=== PATIENT | female | born 1960 | race Caucasian/White ===

== ENCOUNTER 2024-06-17 13:34 | Outpatient (AMB) | payer MEDICARE, OTHER, SELFPAY ==
--- NOTE | 2024-06-17 13:37 | MHC.OFFVIS ---
Vital Signs 06/17/24 13:38 Height 5 ft 5 in Weight 231 lb 11.293 oz BMI 38.6 BP 148/88 H Blood Pressure Location Lt brachial Position Sitting Pulse 55 Pulse Source Pulse Oximeter Intake Visit Reasons: Hypothyroidism,obesity Intake Note: New patient present today for Hypothyroidism and obesity office visit. [employer] Required: No Accompanied by: Self / Same As Patient Allergies moxifloxacin [From Avelox] Allergy (Mild, Verified 06/17/24 13:42) rash Sulfa (Sulfonamide Antibiotics) Allergy (Mild, Verified 06/17/24 13:42) rash Medication List - Last Reconciled 06/17/24 by Di Raya MD topiramate XR 50 mg PO DAILY HPI Comments Details: 63-year-old female here today for initial evaluation of subclinical hypothyroidism and obesity. Subclinical Hypothyroidism Labs from 04/21/2024 showed TSH high of 8.9, prior to that labs from 01/21/2024 showed TSH high at 5.6 with total T4 normal at 7.2, prior to that TSH from 12/21/2023 high at 6.65 with normal total T4 of 7.9. Normal anti TPO antibodies at 15. Reports she had repeat blood work in May 2024 easy they were normal , however these results are not available to me today. Patient currently denies heat or cold intolerance, diarrhea or constipation, hair loss, palpitation, anxiety, mood changes, low energy, changes in appearance of eyes or vision changes, tremors, increased diaphoresis or dry skin. ? Patient denies any difficulty swallowing, pain on swallowing or voice changes or difficulty breathing. Patient denies any history of childhood neck radiation. Denies having ever used lithium, amiodarone or biotin supplements. Patient denies any family history of thyroid cancer . Mother hypothyroidism. Obesity BMI 38.6 Current weight 231 lb Highest weight: 231 lbs since at least 4-5 years Lowest weight: 160 lbs as an adult in 30s , was skinny growing up Weight gain started: gradually started in her 30s 33 first , 1 only, kept gaining weight after Lost 60 lbs in 40s on atkins ,and then gained it back ,in her 50s lost 40 lbs with weight watchers Post menopausal since late 50s Nutrition: seeing academic intern in [employer] With nutrition, Perla Parham . 3 meals a day mostly sometimes skips lunch 7-9AM: eggs , lal , hash browns , fruit 1-2 PM: soup dinner 7 pm: protein with veggies and some carb sodas: none, only seltzer water dessert:sometimes eats at night when less protein at dinner uses my fitness pal Exercise: 6 times a week, weight training 4 days a week , pilates 2 days, each at least 30 mins No official diagnosis of HTN , but elevated BP noted today in 140s No DM2 No HLD [place] on CPAP On topiramate for migraines for 3 months no easy bruising, no proximal muscles weakness no acromegalic features no smoking alcohol: none currently Physical exam General: sitting comfortably in no acute distress HEENT: normocephalic/atraumatic, Neck: supple, symmetrical, no thyromegaly , no dorsocervical or supraclavicular fat pads Cardiac: normal heart sounds Pulm: normal breath sounds B/L, no added breath sounds Abd: not distended, no tenderness Extremities: no edema, no signs of myxedema [facility] Medical History (Updated 06/17/24 @ 15:43 by Di Raya MD) Obesity Subclinical hypothyroidism Bunionette of left foot Surgical History (Updated 06/17/24 @ 13:43 by RENETTA Sanchez) H/O section Family History (Updated 06/17/24 @ 13:45 by RENETTA Sanchez) Mother Past heart attack COPD (chronic obstructive pulmonary disease) Kidney disease Father Prostate cancer Afib Social History Alcohol intake: former Patient Tobacco Use Status: Former Tobacco user Physical Exam Vital Signs: Last Vital Signs Pulse 55 06/17/24 13:38 BP 148/88 H 06/17/24 13:38 BMI result Body Mass Index 38.6 Assessment & Plan Assessment & Plan (1) Subclinical hypothyroidism: Code(s): E03.8 - Other specified hypothyroidism Category: Medical Plan: 63-year-old female with subclinical hyperthyroidism on labs from March 2024 where TSH was elevated at 8 with normal total T4. She says she had blood work done recently in May which showed normal labs these are not available to me today. We will repeat blood work. (2) Obesity: Code(s): E66.9 - Obesity, unspecified Category: Medical Qualifiers: Obesity type: due to excess calories Obesity classification: adult class 2 (BMI 35 - 39.9) Serious obesity comorbidity presence: with serious comorbidity Body mass index: BMI 38.0-38.9 Qualified Code(s): E66.812 - Obesity, class 2; E66.01 - Morbid (severe) obesity due to excess calories; Z68.38 - Body mass index [BMI] 38.0-38.9, adult Plan: 63-year-old female with coming in today for weight management with class 2 obesity with BMI 38.6 Current weight 231 lb Highest weight: 231 lbs since at least 4-5 years Lowest weight: 160 lbs as an adult in 30s , was skinny growing up Weight gain started: gradually started in her 30s She has previously tried different diets including Atkins diet and weight watchers in her 40s and 50s that did result in good results. Currently she has been trying to maintain a calorie deficit, she is seeing a academic intern however is not seeing results. She is also doing regular exercise 6 days a week including both cardio and strength training. I reviewed with patient the importance of weight loss as it relates to decreasing the risk of diabetes, cardiovascular disease, obstructive sleep apnea,PCOS, arthritis. She does not have any cushingoid or acromegalic features . We discussed continuing lifestyle modification in ensuring a 500 calorie deficit per day in order to lose 1 lb per week. She does not have any history of diabetes, CVA, hyperlipidemia. However I will check A1c and lipid panel. She already has sleep apnea and does use a CPAP. She will benefit from a GLP 1 agonist especially with regards to her diagnosis of [place] and obesity. She does not have any history of pancreatitis, she is not drinking any alcohol currently, no family history of thyroid cancer. Plan: -start Zepbound 2.5 mg weekly with plan for up titration of the medication. -continue seeing the academic intern -continue good exercise activity as she is doing -follow up in 5 weeks Plan I spent 60 minutes in reviewing the record, seeing the patient and documenting in the medical record. Orders: Orders Thyroid Stimulating Hormone Today E03.8 - Other specified hypothyroidism Lipid Panel Today E66.9 - Obesity, unspecified Free T4 (Free Thyroxine) Today E03.8 - Other specified hypothyroidism Thyroid Peroxidase Antibodies Today E03.8 - Other specified hypothyroidism Hemoglobin A1c Today E66.9 - Obesity, unspecified Medications: New tirzepatide (weight loss) (Zepbound) for 4 weeks 2.5 mg (0.5 mL) subcut QWEEK 2 mL 1RF Patient Instructions: Weight loss counselling ? Limit added sugars to less than 25 grams daily. There are 4.2 grams of sugar per teaspoon of sugar. A teaspoon of honey has 6 grams of sugar! Bread also can have more sugar than you think-check labels ? No soda or juices. Drink water, unsweetened iced tea or seltzer ? Limit eating out/take out or prepared meals to twice weekly at most ? Avoid red meat, hot dogs, lal and deli meat. Substitute plant protein for animal protein as much as you can. Beans, nuts, tofu, soy milk ? Limit cheese to 1 ounce a few times weekly ? Eat high fiber foods like beans, apples and green veggies, salsa is a great snack with whole grain cracker like Wasa ? Look for the whole grain stamp when choosing bread etc. Aim for 48 grams of whole grains daily. Whole wheat does not equal whole grains! ? Don't keep tempting treats in the house. Go out once in a while for a treat. ? Don't eat anything deep fried or cream based-no sour cream Coding Level of Care Code New Pt Level 5 (04066) Diagnoses Subclinical hypothyroidism E03.8 Class 2 severe obesity due to excess calories with serious comorbidity and body mass index (BMI) of 38.0 to 38.9 in adult E66.812; E66.01; Z68.38 Obesity type: due to excess calories Obesity classification: adult class 2 (BMI 35 - 39.9) Serious obesity comorbidity presence: with serious comorbidity Body mass index: BMI 38.0-38.9 Time Spent (min) 60
[2024-06-17 13:38] VITALS: BP 148/88; PULSE 55; BMI 38.6
== END 2024-06-17 14:39 | disposition home or self-care (01) ==
PROVIDERS: Visit Provider Student in an Organized Health Care Education/Training Program
DX: E03.8 Other specified hypothyroidism (principal); E66.812 Obesity, class 2; Z68.38 Body mass index [BMI] 38.0-38.9, adult
CPT/HCPCS: 99205

== ENCOUNTER → 2024-06-17 13:34 | Outpatient (BNVA) | payer MEDICARE, OTHER, SELFPAY | PROVIDERS: Visit Provider Student in an Organized Health Care Education/Training Program | DX: E03.8 Other specified hypothyroidism (principal); E66.01 Morbid (severe) obesity due to excess calories; Z68.38 Body mass index [BMI] 38.0-38.9, adult | CPT/HCPCS: 99202 ==

== ENCOUNTER 2024-06-20 07:51 | Outpatient (REF) | payer MEDICARE, OTHER, SELFPAY ==
[2024-06-20 12:38] LABS: Cholesterol 192 mg/dL (<200); Free T4 (Free Thyroxine) 0.96 ng/dL (0.71-1.85); HDL Cholesterol 46 mg/dL (>40); LDL Cholesterol Calculated 126 mg/dL (<100); Thyroid Stimulating Hormone 3.49 uIU/mL (0.32-4.0); Triglycerides 101 mg/dL (<150)
[2024-06-20 13:08] LABS: Estimated Average Glucose 111 mg/dL; Hemoglobin A1C 129.8508 umol/L; Hemoglobin A1c % 5.5 % (<6.0); Total Hemoglobin (HGBA1C) 3536.2261 umol/L
[2024-06-23 18:58] LABS: Thyroid Peroxidase Antibodies <1 IU/mL (<9)
== END 2024-06-20 07:52 | disposition home or self-care (01) ==
LOC: HO.WFDLDS 07:51
PROVIDERS: Visit Provider Student in an Organized Health Care Education/Training Program
DX: E03.8 Other specified hypothyroidism (principal); E66.9 Obesity, unspecified; Z13.1 Encounter for screening for diabetes mellitus
CPT/HCPCS: 36415; 80061; 83036; 84439; 84443; 86376

== ENCOUNTER 2024-07-29 13:22 | Outpatient (AMB) | payer MEDICARE, OTHER, SELFPAY ==
[2024-07-29 13:24] VITALS: BP 138/78; PULSE 62; O2SAT 94; BMI 37.9
--- NOTE | 2024-07-29 13:24 | A.OFFVIS_ITS ---
Vital Signs 3 07/29/24 13:24 Height 5 ft 5 in Weight 227 lb 15.327 oz BMI 37.9 BP 138/78 Blood Pressure Location Lt brachial Position Sitting Pulse 62 Pulse Source Pulse Oximeter Pulse Oximetry (%) 94 Oxygen Delivery Method Room Air Intake Visit Reasons: Hypothyroidism/obesity Intake Note: Patient present today for hypothyroidism follow up visit. [employer] Office Required: No Accompanied by: Self / Same As Patient Allergies moxifloxacin [From Avelox] Allergy (Mild, Verified 07/29/24 13:28) rash Sulfa (Sulfonamide Antibiotics) Allergy (Mild, Verified 07/29/24 13:28) rash Medication List - Last Reconciled 07/29/24 by Di Raya MD tirzepatide (weight loss) (Zepbound) 2.5 mg (0.5 mL) subcut QWEEK topiramate XR 50 mg PO DAILY HPI Comments Details: 63-year-old female here today for follow up of subclinical hypothyroidism and obesity. Obesity BMI 38.6 Current weight 231 lb Highest weight: 231 lbs since at least 4-5 years Lowest weight: 160 lbs as an adult in 30s , was skinny growing up Weight gain started: gradually started in her 30s 33 first , 1 only, kept gaining weight after Lost 60 lbs in 40s on atkins ,and then gained it back ,in her 50s lost 40 lbs with weight watchers Post menopausal since late 50s Nutrition: seeing furniture sprayer in [employer] nutrition, Perla Parham . 3 meals a day mostly sometimes skips lunch 7-9AM: eggs , lal , hash browns , fruit 1-2 PM: soup dinner 7 pm: protein with veggies and some carb sodas: none, only seltzer water dessert:sometimes eats at night when less protein at dinner uses my fitness pal Exercise: 6 times a week, weight training 4 days a week , pilates 2 days, each at least 30 mins No official diagnosis of HTN , but elevated BP noted today in 140s No DM2 No HLD [place] on CPAP On topiramate for migraines for 3 months no easy bruising, no proximal muscles weakness no acromegalic features no smoking alcohol: none currently Interval history Zepbound 2.5 mg weekly approved 07/29/24 BMI 37.9 kg/m2, current weight 227 lbs lost 4 lbs since May 2024 according to our scale in addition to above adding more core exercise , working with a maintenance trainer Continues to use my fitness pal for maintaining a calorie deficit and aiming for 1500 calories per day Subclinical Hypothyroidism : Resolved Labs from 04/21/2024 showed TSH high of 8.9, prior to that labs from 01/21/2024 showed TSH high at 5.6 with total T4 normal at 7.2, prior to that TSH from 12/21/2023 high at 6.65 with normal total T4 of 7.9. Normal anti TPO antibodies at 15. Reports she had repeat blood work in May 2024 easy they were normal , however these results are not available to me today. Patient currently denies heat or cold intolerance, diarrhea or constipation, hair loss, palpitation, anxiety, mood changes, low energy, changes in appearance of eyes or vision changes, tremors, increased diaphoresis or dry skin. ? Patient denies any difficulty swallowing, pain on swallowing or voice changes or difficulty breathing. Patient denies any history of childhood neck radiation. Denies having ever used lithium, amiodarone or biotin supplements. Patient denies any family history of thyroid cancer . Mother hypothyroidism. Interval history 06/20/2024: Normal thyroid function, undetectable TPO antibodies Physical exam General: sitting comfortably in no acute distress HEENT: normocephalic/atraumatic, Neck: supple, symmetrical, no thyromegaly , no dorsocervical or supraclavicular fat pads Cardiac: normal heart sounds Pulm: normal breath sounds B/L, no added breath sounds Abd: not distended, no tenderness Extremities: no edema, no signs of myxedema Laboratory Tests 06/20/24 07:55 Estimat Average Glucose 111 Hemoglobin A1c % 5.5 Triglycerides 101 Cholesterol 192 LDL Cholesterol, Calc 126 H HDL Cholesterol 46 TSH 3.49 Free T4 0.96 Thyroid Peroxidase Ab <1 [facility] Medical History (Updated 06/17/24 @ 15:43 by Di Raya MD) Obesity Subclinical hypothyroidism Bunionette of left foot Surgical History H/O section Family History Mother Past heart attack COPD (chronic obstructive pulmonary disease) Kidney disease Father Prostate cancer Afib Social History Alcohol intake: former Patient Tobacco Use Status: Former Tobacco user Physical Exam Vital Signs: Last Vital Signs Pulse 62 07/29/24 13:24 BP 138/78 07/29/24 13:24 Pulse Ox 94 07/29/24 13:24 Oxygen Delivery Method Room Air 07/29/24 13:24 BMI result Body Mass Index 37.9 Assessment & Plan Assessment & Plan (1) Subclinical hypothyroidism: Code(s): E03.8 - Other specified hypothyroidism Category: Medical Plan: Resolved: 63-year-old female with subclinical hyperthyroidism on labs from March 2024 where TSH was elevated at 8 with normal total T4. Interval history 06/20/2024: Normal thyroid function, undetectable TPO antibodies. at this point, she does not need follow up for this. Primary care physician can repeat labs with TSH with reflex free T4 once a year. (2) Obesity: Code(s): E66.9 - Obesity, unspecified Category: Medical Qualifiers: Obesity type: due to excess calories Obesity classification: adult class 2 (BMI 35 - 39.9) Serious obesity comorbidity presence: with serious comorbidity Body mass index: BMI 38.0-38.9 Qualified Code(s): E66.812 - Obesity, class 2; E66.01 - Morbid (severe) obesity due to excess calories; Z68.38 - Body mass index [BMI] 38.0-38.9, adult Plan: 63-year-old female with coming in today for follow up for weight management with class 2 obesity with BMI 37.9 kg per m2 down from 38.6 in May 2024 Current weight 227 lb, lost 4 lb since May 1024. Patient thinks she lost 10 lb which is different on her hence scale. Highest weight: 231 lbs since at least 4-5 years Lowest weight: 160 lbs as an adult in 30s , was skinny growing up Weight gain started: gradually started in her 30s She has previously tried different diets including Atkins diet and weight watchers in her 40s and 50s that did result in good results. Currently she has been trying to maintain a calorie deficit, she is seeing a furniture sprayer however is not seeing results. She is also doing regular exercise 6 days a week including both cardio and strength training. She has also added core exercises to this and works with a maintenance trainer. I reviewed with patient the importance of weight loss as it relates to decreasing the risk of diabetes, cardiovascular disease, obstructive sleep apnea,PCOS, arthritis. She does not have any cushingoid or acromegalic features . We discussed continuing lifestyle modification in ensuring a 500 calorie deficit per day in order to lose 1 lb per week. She does not have any history of diabetes, CVA, , labs from May 2024 showed normal A1c. LDL was however elevated at 126. We also discussed today about avoiding red meat, using olive oil or avocado oil for cocaine. And avoiding trans saturated in polyunsaturated fats. She already has sleep apnea and does use a CPAP. Given obesity with BMI greater than 35 kg per m2, with a history of [place], hyperlipidemia she is an excellent candidate for GLP 1 agonist. We already prescribed her the about 2.5 mg weekly at her last appointment, however it took about 2 months where her prior authorization to take place. It has finally been approved by [facility] and she is pending to cook pickled meat the prescription. She does not have any history of pancreatitis, she is not drinking any alcohol currently, no family history of thyroid cancer. Plan: -start Zepbound 2.5 mg weekly with plan for up titration of the medication. -continue seeing the furniture sprayer -continue good exercise activity as she is doing -follow up in 12 weeks Plan see above Coding Level of Care Code Est Pt Level 3 (94730) Diagnoses Subclinical hypothyroidism E03.8 Class 2 severe obesity due to excess calories with serious comorbidity and body mass index (BMI) of 38.0 to 38.9 in adult E66.812; E66.01; Z68.38 Obesity type: due to excess calories Obesity classification: adult class 2 (BMI 35 - 39.9) Serious obesity comorbidity presence: with serious comorbidity Body mass index: BMI 38.0-38.9
== END 2024-07-29 13:49 | disposition home or self-care (01) ==
PROVIDERS: Visit Provider Student in an Organized Health Care Education/Training Program
DX: E03.8 Other specified hypothyroidism (principal); E66.812 Obesity, class 2; E66.01 Morbid (severe) obesity due to excess calories; Z68.38 Body mass index [BMI] 38.0-38.9, adult
CPT/HCPCS: 99213

== ENCOUNTER → 2024-07-29 13:22 | Outpatient (BNVA) | payer MEDICARE, OTHER, SELFPAY | PROVIDERS: Visit Provider Student in an Organized Health Care Education/Training Program | DX: E03.8 Other specified hypothyroidism (principal); E66.812 Obesity, class 2; Z68.37 Body mass index [BMI] 37.0-37.9, adult | CPT/HCPCS: 99212 ==

== ENCOUNTER 2024-09-23 14:44 | Outpatient (AMB) | payer MEDICARE, OTHER, SELFPAY ==
--- NOTE | 2024-09-23 14:48 | A.OFFPC_ITS ---
Vital Signs 09/23/24 14:59 Height 5 ft 5 in Weight 210 lb 4 oz BMI 35.0 BP 118/68 Blood Pressure Location Rt brachial Position Sitting Respiration 16 Pulse 66 Pulse Source Pulse Oximeter Temp 97.9 F Temp Source Oral Pulse Oximetry (%) 99 Oxygen Delivery Method Room Air Intake Visit Reasons: est care Intake Note: New patient visit Confidential Investigator Required: No Allergies moxifloxacin [From Avelox] Allergy (Mild, Verified 09/23/24 14:53) rash Sulfa (Sulfonamide Antibiotics) Allergy (Mild, Verified 09/23/24 14:53) rash Tobacco use date assessed: 09/23/24 Fall risk assessment: 1 Fall in past year (Fell two weeks ago. ) Last assessed Fall Risk: 09/23/24 Dental Screening Dental Screen Date: 09/23/24 Did you have a dental visit in the last 12 months?: Yes Did you have a dental problem in the last 6 months where you did not have access to dental care?: No Was dental information given to patient?: Patient has dentist HPI HPI Comments History of Present Illness Details 63-year-old female with a past medical h istory of hyperlipidemia, obesity, subclinical hypothyroid, bipolar disorder, [place] on cpap, [facility] Transfer[facility] from Dr Hinds in [facility] On topamax for JENSEN prophylaxis. Has had MRI brain that was normal [place]-on CPAP. Obesity: Has lost 20 + pounds on zepbound. Has seen endocrinology Colonoscopy: 01/06/2020 Mammo: UTD. Family history of breast cancer. 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 [facility] Laboratory Tests 06/20/24 07:55 Estimat Average Gl ucose 111 Hemoglobin A1c % 5.5 Triglycerides 101 Cholesterol 192 LDL Cholesterol, C alc 126 H HDL Cholesterol 46 TSH 3.49 Free T4 0.96 Thyroid Peroxidase Ab <1 PFSH Medical History Obesity Subclinical hypothyroidism Bunionette of left foot Surgical History History of bunionectomy H/O colonoscopy H/O section Family History Mother Past heart attack COPD (chronic obstructive pulmonary disease) Kidney disease Father Prostate cancer Afib Social History Housing: House Alcohol intake: former Patient Tobacco Use Status: Former Tobacco user (quit 30 years ago) Cigarette Packs Per Day: 1 Years Smoked: 20 e-Cigarette/Vaping Use: Never Used Second Hand Smoke Exposure: Yes (past) Substance Use Type: Crack/Cocaine, Former Substance User and Marijuana service: No Current occupational status: employed and retired Cognitive needs: No Hearing needs: No Vision needs: Yes (glasses) Questionnaire PHQ-9 Over the last 2 weeks, how often have you been bothered by any of the following problems? 1. Little interest or pleasure in doing things: not at all 2. Feeling down, depressed, or hopeless: not at all 3. Trouble falling or staying asleep, or sleeping too much: not at all 4. Feeling tired or having little energy: not at all 5. Poor appetite or overeating: not at all 6. Feeling bad about yourself - or that you are a failure or have let yourself or your family down: not at all 7. Trouble concentrating on things, such as reading the newspaper or watching television: not at all 8. Moving or speaking so slowly that other people could have noticed. Or the opposite - being so fidgety or restless that you have been moving around a lot more than usual: not at all 9. Thoughts that you would be better off or of hurting yourself in some way: not at all Total score: 0 Depression Screening Interpretation: Negative Depression Screening Done: Yes 40196 - PHQ-9 Billing: Yes Source: Developed by Drs. Johan Chahal, Angelina Wayne, Gordon Griffin and colleagues, with an educational dany from [employer]. Thrive Questionnaire Date Thrive assessed: 09/23/24 I am a: Patient What is your living situation today?: I have a steady place to live Within the past 12 months, did the food you bought not last and you didn't have the money to get more?: Never true Within the past 12 months, did you worry whether your food would run out before you got money to buy more?: Never true Do you have trouble paying for medicines?: No Do you have trouble getting transportation to medical appointments?: No Do you have trouble paying your heating and electricity bill?: No Do you have trouble taking care of your child, family member or friend?: No Do you have trouble with day-to-day activities such as bathing, preparing meals, shopping, managing finances, etc.?: No Are you currently unemployed and looking for a job?: No Are you interested in more education?: No Please select the resources that you would like help with: None Currently or been in a relationship where the following occur: I choose not to answer THRIVE Score: 0 AUDIT C Alcohol Use Questionnaire (AUDIT-C) 1. How often do you have a drink containing alcohol?: Monthly or less 2. How many drinks containing alcohol do you have on a typical day when you are drinking?: 1 or 2 3. How often do you have six or more drinks on one occasion?: Never Total Score: 1 DREW-7 AMB Questionnaire DREW-7 Date DREW - 7 assessed: 09/23/24 Feeling nervous, anxious, or on edge: 1 = Several days Not being able to stop or control worryin = Not at all Worrying too much about different things: 0 = Not at all Trouble relaxin = Several days Being so restless that it is hard to sit still: 1 = Several days Becoming easily annoyed or irritable: 1 = Several days Feeling afraid as if something awful might happen: 0 = Not at all Total DREW-7 score (0-4 normal; 5-9 mild; 10-14 moderate; 15-21 severe): 4 Source: Developed by Drs. Johan Chahal, Angelina Wayne, Gordon Griffin and colleagues, with an educational dany from [employer]. DREW-7 Assessment Billing DREW-7 Assessment Tool: DREW-7 Assessment 16993 Physical exam (Primary Care) Vital Signs: Last Vital Signs Temp 97.9 F 09/23/24 14:59 Pulse 66 09/23/24 14:59 Resp 16 09/23/24 14:59 BP 118/68 09/23/24 14:59 Pulse Ox 99 09/23/24 14:59 Oxygen Delivery Method Room Air 09/23/24 14:59 BMI result Body Mass Index 35.0 Tobacco/Smoking Status: Tobacco use Status Tobacco use date assessed 09/23/24 09/23/24 14:57 Patient Tobacco Use Status Former Tobacco user (quit 30 09/23/24 14:57 years ago) e-Cigarette/Vaping Use Never Used 09/23/24 14:57 PHQ-9: PHQ-9 Score PHQ-9: Total score 0 09/24/24 09:56 Depression Screening Interpretation: Negative Thrive Assessment: Date of Thrive Assessment Date Thrive assessed 09/23/24 09/23/24 15:04 Currently or been in a relationship where the following occur: I choose not to answer Coding Level of Care Code New Pt Level 4 (40716) Diagnoses Encounter to establish care Z76.89 [place] (obstructive sleep apnea) G47.33 Class 2 severe obesity due to excess calories with serious comorbidity and body mass index (BMI) of 38.0 to 38.9 in adult E66.812; E66.01; Z68.38 Body mass index: BMI 38.0-38.9 Obesity classification: adult class 2 (BMI 35 - 39.9) Obesity type: due to excess calories Serious obesity comorbidity presence: with serious comorbidity Subclinical hypothyroidism E03.8 Additional Codes DREW-7 Assessment Billing - DREW-7 Assessment Tool: DREW-7 Assessment 13935 ([id number]) PHQ-9 - 16309 - PHQ-9 Billing: Yes ([id number]) Assessment & Plan Assessment & Plan (1) Encounter to establish care: Code(s): Z76.89 - Persons encountering health services in other specified circumstances Category: Medical (2) [place] (obstructive sleep apnea): Code(s): G47.33 - Obstructive sleep apnea (adult) (pediatric) Category: Medical (3) Obesity: Code(s): E66.9 - Obesity, unspecified Category: Medical Qualifiers: Body mass index: BMI 38.0-38.9 Obesity classification: adult class 2 (BMI 35 - 39.9) Obesity type: due to excess calories Serious obesity comorbidity presence: with serious comorbidity Qualified Code(s): E66.812 - Obesity, class 2; E66.01 - Morbid (severe) obesity due to excess calories; Z68.38 - Body mass index [BMI] 38.0-38.9, adult (4) Subclinical hypothyroidism: Code(s): E03.8 - Other specified hypothyroidism Category: Medical Plan 63 y/o to establish care Past medical, surgical, social and family history reviewed referral to sleep medicine placed Orders: Referrals Sleep Medicine Referral G47.33 - Obstructive sleep apnea (adult) (pediatric)
[2024-09-23 14:59] VITALS: BP 118/68; PULSE 66; RESP 16; TEMP 36.6; O2SAT 99; BMI 35.0
== END 2024-09-23 15:31 | disposition home or self-care (01) ==
LOC: HO.HMCFM 14:45
PROVIDERS: Visit Provider Internal Medicine
DX: G47.33 Obstructive sleep apnea (adult) (pediatric) (principal); Z76.89 Persons encountering health services in other specified circumstances; E66.01 Morbid (severe) obesity due to excess calories; Z68.35 Body mass index [BMI] 35.0-35.9, adult; Z68.38 Body mass index [BMI] 38.0-38.9, adult; E66.812 Obesity, class 2; E03.8 Other specified hypothyroidism

== ENCOUNTER → 2024-09-23 14:44 | Outpatient (BNVA) | payer MEDICARE, OTHER, SELFPAY | PROVIDERS: Visit Provider Internal Medicine | DX: Z76.89 Persons encountering health services in other specified circumstances (principal); G47.33 Obstructive sleep apnea (adult) (pediatric); E66.812 Obesity, class 2; E66.01 Morbid (severe) obesity due to excess calories; Z68.38 Body mass index [BMI] 38.0-38.9, adult; E03.8 Other specified hypothyroidism | CPT/HCPCS: 96127; 99202 ==

== ENCOUNTER 2024-10-28 13:54 | Outpatient (AMB) | payer MEDICARE, OTHER, SELFPAY ==
[2024-10-28 13:56] VITALS: BP 126/78; PULSE 61; O2SAT 98; BMI 34.4
--- NOTE | 2024-10-28 13:56 | MHC.OFFVIS ---
Intake Visit Reasons: Obesity Allergies moxifloxacin [From Avelox] Allergy (Mild, Verified 09/23/24 14:53) rash Sulfa (Sulfonamide Antibiotics) Allergy (Mild, Verified 09/23/24 14:53) rash HPI Comments Details: 63-year-old female here today for follow up of subclinical hypothyroidism and obesity. Obesity BMI 38.6 Current weight 231 lb Highest weight: 231 lbs since at least 4-5 years Lowest weight: 160 lbs as an adult in 30s , was skinny growing up Weight gain started: gradually started in her 30s 33 first , 1 only, kept gaining weight after Lost 60 lbs in 40s on atkins ,and then gained it back ,in her 50s lost 40 lbs with weight watchers Post menopausal since late 50s Nutrition: seeing equipment service associate in [employer] nutrition, Perla Parham . 3 meals a day mostly sometimes skips lunch 7-9AM: eggs , lal , hash browns , fruit 1-2 PM: soup dinner 7 pm: protein with veggies and some carb sodas: none, only seltzer water dessert:sometimes eats at night when less protein at dinner uses my fitness pal Exercise: 6 times a week, weight training 4 days a week , pilates 2 days, each at least 30 mins No official diagnosis of HTN , but elevated BP noted today in 140s No DM2 No HLD [place] on CPAP On topiramate for migraines for 3 months no easy bruising, no proximal muscles weakness no acromegalic features no smoking alcohol: none currently Interval history Zepbound 2.5 mg weekly approved 07/29/24 BMI 37.9 kg/m2, current weight 227 lbs lost 4 lbs since May 2024 according to our scale in addition to above adding more core exercise , working with a personal carer Continues to use my fitness pal for maintaining a calorie deficit and aiming for 1500 calories per day Subclinical Hypothyroidism : Resolved Labs from 04/21/2024 showed TSH high of 8.9, prior to that labs from 01/21/2024 showed TSH high at 5.6 with total T4 normal at 7.2, prior to that TSH from 12/21/2023 high at 6.65 with normal total T4 of 7.9. Normal anti TPO antibodies at 15. Reports she had repeat blood work in May 2024 easy they were normal , however these results are not available to me today. Patient currently denies heat or cold intolerance, diarrhea or constipation, hair loss, palpitation, anxiety, mood changes, low energy, changes in appearance of eyes or vision changes, tremors, increased diaphoresis or dry skin. ? Patient denies any difficulty swallowing, pain on swallowing or voice changes or difficulty breathing. Patient denies any history of childhood neck radiation. Denies having ever used lithium, amiodarone or biotin supplements. Patient denies any family history of thyroid cancer . Mother hypothyroidism. Interval history 06/20/2024: Normal thyroid function, undetectable TPO antibodies Physical exam General: sitting comfortably in no acute distress HEENT: normocephalic/atraumatic, Neck: supple, symmetrical, no thyromegaly , no dorsocervical or supraclavicular fat pads Cardiac: normal heart sounds Pulm: normal breath sounds B/L, no added breath sounds Abd: not distended, no tenderness Extremities: no edema, no signs of myxedema Laboratory Tests 06/20/24 07:55 Estimat Average Glucose 111 Hemoglobin A1c % 5.5 Triglycerides 101 Cholesterol 192 LDL Cholesterol, Calc 126 H HDL Cholesterol 46 TSH 3.49 Free T4 0.96 Thyroid Peroxidase Ab <1 PFSH Medical History Obesity Subclinical hypothyroidism Bunionette of left foot Surgical History History of bunionectomy H/O colonoscopy H/O section Family History Mother Past heart attack COPD (chronic obstructive pulmonary disease) Kidney disease Father Prostate cancer Afib Social History Housing: House Alcohol intake: former Patient Tobacco Use Status: Former Tobacco user (quit 30 years ago) Cigarette Packs Per Day: 1 Years Smoked: 20 e-Cigarette/Vaping Use: Never Used Second Hand Smoke Exposure: Yes (past) Substance Use Type: Crack/Cocaine, Former Substance User and Marijuana service: No Current occupational status: employed and retired Cognitive needs: No Hearing needs: No Vision needs: Yes (glasses) Coding
--- NOTE | 2024-10-28 13:56 | MHC.OFFVIS ---
Vital Signs 10/28/24 13:56 Height 5 ft 5 in Weight 207 lb 0.225 oz BMI 34.4 BP 126/78 Blood Pressure Location Lt brachial Position Sitting Pulse 61 Pulse Source Pulse Oximeter Pulse Oximetry (%) 98 Oxygen Delivery Method Room Air Intake Visit Reasons: Obesity Intake Note: Patient present today for Obesity office visit. Tobacco Roller Required: No Accompanied by: Self / Same As Patient Allergies moxifloxacin [From Avelox] Allergy (Mild, Verified 10/28/24 13:59) rash Sulfa (Sulfonamide Antibiotics) Allergy (Mild, Verified 10/28/24 13:59) rash Medication List - Last Reconciled 10/28/24 by Di Raya MD [id number] (Evenity) subcut tirzepatide (weight loss) (Zepbound) 5 mg (0.5 mL) subcut QWEEK topiramate XR 50 mg PO DAILY HPI Comments Details: 63-year-old female here today for follow up of obesity. Obesity BMI 38.6 Current weight 231 lb Highest weight: 231 lbs since at least 4-5 years Lowest weight: 160 lbs as an adult in 30s , was skinny growing up Weight gain started: gradually started in her 30s 33 first , 1 only, kept gaining weight after Lost 60 lbs in 40s on atkins ,and then gained it back ,in her 50s lost 40 lbs with weight watchers Post menopausal since late 50s Nutrition: seeing conditioning coach in [employer] nutrition, Perla Parham . 3 meals a day mostly sometimes skips lunch 7-9AM: eggs , lal , hash browns , fruit 1-2 PM: soup dinner 7 pm: protein with veggies and some carb sodas: none, only seltzer water dessert:sometimes eats at night when less protein at dinner uses my fitness pal Exercise: 6 times a week, weight training 4 days a week , pilates 2 days, each at least 30 mins No official diagnosis of HTN , but elevated BP noted today in 140s No DM2 No HLD [place] on CPAP On topiramate for migraines for 3 months no easy bruising, no proximal muscles weakness no acromegalic features no smoking alcohol: none currently Interval history 07/29/2024 Zepbound 2.5 mg weekly approved 07/29/24 BMI 37.9 kg/m2, current weight 227 lbs lost 4 lbs since May 2024 according to our scale in addition to above adding more core exercise , working with a personal injury paralegal Continues to use my fitness pal for maintaining a calorie deficit and aiming for 1500 calories per day Interval history 10/28/2024 Started Zepbound 2.5 mg July 2024 Increased to 5 mg weekly end of July Patient tolerating the medication valve Exercise: 6 times a week, weight training 3 times a week, Pilates 2 days, each at least 30 minutes, also working with a personal injury paralegal Diet: Following a diet plan with calorie deficit with the using my fitness pal Says she has started Zepbound with lifestyle modification she has lost 13% of her body weight, weight down from 231 lb in May 2024 to 207 lb today 10/28/2024 Denies GI intolerance, some diarrhea intermittently Denies low mood , depression, has a therpsist Continues follow up with the conditioning coach, has follow up this month in October 2024 Physical exam General: sitting comfortably in no acute distress HEENT: normocephalic/atraumatic, Neck: supple, symmetrical Cardiac: normal heart sounds Pulm: normal breath sounds B/L, no added breath sounds Abd: not distended, no tenderness Extremities: no edema, no signs of myxedema Laboratory Tests 06/20/24 07:55 Estimat Average Glucose 111 Hemoglobin A1c % 5.5 Triglycerides 101 Cholesterol 192 LDL Cholesterol, Calc 126 H HDL Cholesterol 46 TSH 3.49 Free T4 0.96 Thyroid Peroxidase Ab <1 PFSH Medical History Obesity Subclinical hypothyroidism Bunionette of left foot Surgical History History of bunionectomy H/O colonoscopy H/O section Family History Mother Past heart attack COPD (chronic obstructive pulmonary disease) Kidney disease Father Prostate cancer Afib Social History Housing: House Alcohol intake: former Patient Tobacco Use Status: Former Tobacco user (quit 30 years ago) Cigarette Packs Per Day: 1 Years Smoked: 20 e-Cigarette/Vaping Use: Never Used Second Hand Smoke Exposure: Yes (past) Substance Use Type: Crack/Cocaine, Former Substance User and Marijuana service: No Current occupational status: employed and retired Cognitive needs: No Hearing needs: No Vision needs: Yes (glasses) Assessment & Plan Assessment & Plan (1) Obesity: Code(s): E66.9 - Obesity, unspecified Category: Medical Qualifiers: Obesity type: due to excess calories Obesity classification: adult class 2 (BMI 35 - 39.9) Serious obesity comorbidity presence: with serious comorbidity Body mass index: BMI 38.0-38.9 Qualified Code(s): E66.812 - Obesity, class 2; E66.01 - Morbid (severe) obesity due to excess calories; Z68.38 - Body mass index [BMI] 38.0-38.9, adult Plan: 63-year-old female with coming in today for follow up for weight management with class 2 obesity with BMI 38.6 in May 2024 Current weight 207 lb, lost 30 lb since May 2024 which is about 13% of her weight since she made the lifestyle modifications and started Zepbound. Currently on Zepbound 5 mg weekly which was uptitrated end of July 2024. Highest weight: 231 lbs since at least 4-5 years Lowest weight: 160 lbs as an adult in 30s , was skinny growing up Weight gain started: gradually started in her 30s She has previously tried different diets including Atkins diet and weight watchers in her 40s and 50s that did result in good results. Currently she has been trying to maintain a calorie deficit, she is following. She is following a diet plan with the help of a conditioning coach and also using my fitness pal. She has also added core exercises to this and works with a personal injury paralegal. Maintaining an active exercise regimen. She does not have any cushingoid or acromegalic features . We discussed continuing lifestyle modification in ensuring a 500 calorie deficit per day in order to continue to lose 1 lb per week. Her target weight should be somewhere around 130 lb though for her she would like to lose somewhere around 180 lb She does not have any history of diabetes, CVA, , labs from May 2024 showed normal A1c. LDL was however elevated at 126. We also discussed today about avoiding red meat, using olive oil or avocado oil for cooking. And avoiding trans saturated in polyunsaturated fats. She already has sleep apnea and does use a CPAP. At this point we will continue the current dose of Zepbound given we are seeing excellent results. If her weight starts to plateau, we will consider increasing the dose. Plan: -continue Zepbound 5 mg weekly injection -continue seeing the conditioning coach -continue good exercise activity as she is doing -follow up in 12 weeks Plan see above Patient Instructions: Reach out to us sometime in January to ensure that her prior authorization is renewed on time. Continue Zepbound 5 mg weekly Coding Level of Care Code Est Pt Level 3 (98242) Diagnoses Class 2 severe obesity due to excess calories with serious comorbidity and body mass index (BMI) of 38.0 to 38.9 in adult E66.812; E66.01; Z68.38 Obesity type: due to excess calories Obesity classification: adult class 2 (BMI 35 - 39.9) Serious obesity comorbidity presence: with serious comorbidity Body mass index: BMI 38.0-38.9
== END 2024-10-28 14:27 | disposition home or self-care (01) ==
LOC: HO.ENCR 13:55
PROVIDERS: Visit Provider Student in an Organized Health Care Education/Training Program
DX: E66.812 Obesity, class 2 (principal); E66.01 Morbid (severe) obesity due to excess calories; Z68.38 Body mass index [BMI] 38.0-38.9, adult
CPT/HCPCS: 99213

== ENCOUNTER → 2024-10-28 13:54 | Outpatient (BNVA) | payer MEDICARE, OTHER, SELFPAY | PROVIDERS: Visit Provider Student in an Organized Health Care Education/Training Program | DX: E66.812 Obesity, class 2 (principal); E66.01 Morbid (severe) obesity due to excess calories; Z68.34 Body mass index [BMI] 34.0-34.9, adult | CPT/HCPCS: 99212 ==

== ENCOUNTER 2024-11-24 10:39 | Outpatient (AMB) | payer MEDICARE, OTHER, SELFPAY ==
[2024-11-24 10:51] VITALS: BP 124/80; PULSE 56; O2SAT 99; BMI 34.0
--- NOTE | 2024-11-24 10:51 | MHC.OFFVIS ---
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 [place] on CPAP. [facility]. Patient has to. Compliance in chart.(88/90 days, >=4hrs 97%, average usage- 6hrs 39min, med pressure-10.4, med leaks-4.2, AHI-0.8) Here to establish new care as old Dr. potts. Accompanied by: Self / Same As Patient Allergies moxifloxacin (From Avelox) Allergy (Mild, Verified 11/24/24 10:55) rash Sulfa (Sulfonamide Antibiotics) Allergy (Mild, Verified 11/24/24 10:55) rash HPI Comments Details: 64 year old female with [place] referred to us by her pcp. FH + Afib dad and sister ZAMZAM. 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 She sleeps very well with her machine and hopes to lose weight and outgrow her cpap some day. She is on zepbound 5mg subcut. 1x and has lost 27lbs, she reduced her caloric intake, she exercises daily with the gym full plate . she sees her senior manufacturing test engineer and mold worker every 4 months Apr 2023 she started on cpap therapy, uses her nose pillows, washes her masks, hoses, changes filters, and fills reservoir with water. She sleeps very well with her cpap machine and is compliant. She grinds her teeth, has a retainer at night. She had some issues with her thyroid, now improved and followed by Di Raya her Custom Wood Stair Builder. 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 Headaches are managed well on topamax 50mg daily, if she gets one breakthrough tension headache she soaks her feet and that alleviates the pain. She denies RLS, has a h/o varicose veins, she wears her compression stockings every other day. She denies current smoking, is a former 20 year smoker, she will have cocktails socially, denies MJ, edibles. She has osteoporosis on Evenity subcut monthly. Women's health Associate [facility] Dr. Rosanne jimenez requested. [facility] Medical History Obesity Subclinical hypothyroidism Bunionette of left foot Surgical History History of bunionectomy H/O colonoscopy H/O section Family History (Updated 11/24/24 @ 11:57 by Julio Zuniga PA-C) Mother Past heart attack COPD (chronic obstructive pulmonary disease) Kidney disease Afib Father Prostate cancer Afib Sister Afib Social History Housing: House Alcohol intake: former Patient Tobacco Use Status: Former Tobacco user (quit 30 years ago) Cigarette Packs Per Day: 1 Years Smoked: 20 e-Cigarette/Vaping Use: Never Used Second Hand Smoke Exposure: Yes (past) Substance Use Type: Crack/Cocaine, Former Substance User and Marijuana service: No Current occupational status: employed and retired Cognitive needs: No Hearing needs: No Vision needs: Yes (glasses) Physical Exam Vital Signs: Last Vital Signs Pulse 56 11/24/24 10:51 BP 124/80 11/24/24 10:51 Pulse Ox 99 11/24/24 10:51 Oxygen Delivery Method Room Air 11/24/24 10:51 BMI result Body Mass Index 34.0 Const General: cooperative, comfortable and no acute distress Nutritional Appearance: average body habitus Orientation/consciousness: patient oriented x3 HEENT Face and sinus: Yes face symmetric Teeth and gingiva: other (Mallampti score of 4) Eyes Pupils: Equal, round and reactive pupils present Neck Neck: Yes full ROM Resp Effort & Inspection: normal respiratory effort and able to speak in complete sentences Neuro General: patient oriented x3 and moves all extremities Cranial nerves: Yes Facial sensation intact/muscles of mastication intact, Yes Equal, round and reactive pupils present, Yes Normal accommodation reflex present, Yes Nystagmus not present, Yes Normal facial strength present, Yes Midline tongue present and Yes Ability to bilaterally elevate shoulders present Cognition (Neuro): normal cognition Gait exam (Neuro): Normal gait present Motor exam (neuro): 5/5 motor strength present throughout and Normal motor muscle tone present throughout Deep tendon reflexes (DTR's): Right triceps reflex intensity grade: 2+, Left triceps reflex intensity grade: 2+, Rt Biceps (C5, C6): 2+, Left biceps reflex intensity grade: 2+, Right brachioradialis reflex intensity grade: 2+, Left brachioradialis reflex intensity grade: 2+, Right patellar reflex intensity grade: 2+, Left patellar reflex intensity grade: 2+, Right ankle reflex intensity grade: 2+ and Left ankle reflex intensity grade: 2+ Coordination: [id number] test normal Psych Appearance: grossly normal Speech and movement: Normal speech and movement present Affect: normal affect Thought process: Normal thought process present Results Reviewed Results Reviewed: [place] Compliance Report 07/2024 - 10/2024 Avg days used 88/90 and >4 hours is 97% Total avg use daily is 6 hours and 39min Pressures 10.0 to [id number] and AHI is 0.8/ hr Assessment & Plan Assessment & Plan (1) [place] (obstructive sleep apnea): Code(s): G47.33 - Obstructive sleep apnea (adult) (pediatric) Category: Medical (2) Fatigue due to sleep pattern disturbance: Code(s): R53.83 - Other fatigue; G47.9 - Sleep disorder, unspecified Category: Medical (3) Encounter to establish care: Comment: Her retired at [facility] [employer] Code(s): Z76.89 - Persons encountering health services in other specified circumstances Category: Medical (4) Obesity: Comment: On Zepbound 5mg po subcut wkly Code(s): E66.9 - Obesity, unspecified Category: Medical Qualifiers: Obesity type: due to excess calories Obesity classification: adult class 2 (BMI 35 - 39.9) Serious obesity comorbidity presence: with serious comorbidity Body mass index: BMI 38.0-38.9 Qualified Code(s): E66.812 - Obesity, class 2; E66.01 - Morbid (severe) obesity due to excess calories; Z68.38 - Body mass index [BMI] 38.0-38.9, adult Plan HST c/w [place] Labs to r/o deficiencies Obesity continue zepbound 5mg subcut weekly, continue working with phsyical quality review trainer and staying active, reducing calories. Orders: Orders Methylmalonic Acid Today G47.9 - Sleep disorder, unspecified, R53.83 - Other fatigue Calcium Today G47.9 - Sleep disorder, unspecified, R53.83 - Other fatigue Vitamin D 25-OH Total Today G47.9 - Sleep disorder, unspecified, R53.83 - Other fatigue Vitamin B12 and Folate Today G47.9 - Sleep disorder, unspecified, R53.83 - Other fatigue Homocysteine Today G47.9 - Sleep disorder, unspecified, R53.83 - Other fatigue Ferritin Today G47.9 - Sleep disorder, unspecified, R53.83 - Other fatigue Patient Instructions: Sleep Hygiene provided: set a scheduled bedtime and wake time to help regulate the circadian rhythm and balance the release of pituitary hormones. Sleep in a dark room, temperatures below 68 degrees, and no devices n bed. Limit caffeinated products 6 hours prior to bed, and limit fluids 2-4 hours prior to bed. Gentle night yoga, diffusing essential oils, and playing soft music can be relaxing. Coding Level of Care Code New Pt Level 4 (68436) Diagnoses [place] (obstructive sleep apnea) G47.33 Fatigue due to sleep pattern disturbance R53.83; G47.9 Encounter to establish care Z76.89 Class 2 severe obesity due to excess calories with serious comorbidity and body mass index (BMI) of 38.0 to 38.9 in adult E66.812; E66.01; Z68.38 Obesity type: due to excess calories Obesity classification: adult class 2 (BMI 35 - 39.9) Serious obesity comorbidity presence: with serious comorbidity Body mass index: BMI 38.0-38.9 Time Spent (min) 30 Comment Improving sleep Sleep Questionnaire Difficulty falling asleep: No Difficulty staying asleep?: No Number of arousals: 2-3 Snoring: Yes Witnessed apneas: No Gasping arousals: No Nocturia: No GERD: No Vivid dreams: Yes Acting out dreams: No Abnormal behavior in sleep: No Abnormal movements in sleep: No Morning headaches: No Excessive daytime sleepiness: No Daytime naps: Yes Restless legs: No Hallucinations: No Sleep paralysis: No Drop attacks: No Sleep Study: Yes CPAP: Yes
== END 2024-11-24 11:50 | disposition home or self-care (01) ==
LOC: HO.HSMS 10:40
PROVIDERS: Visit Provider Physician Assistant Medical
DX: G47.33 Obstructive sleep apnea (adult) (pediatric) (principal); R53.83 Other fatigue; G47.9 Sleep disorder, unspecified; Z76.89 Persons encountering health services in other specified circumstances; E66.812 Obesity, class 2; E66.01 Morbid (severe) obesity due to excess calories; Z68.38 Body mass index [BMI] 38.0-38.9, adult
CPT/HCPCS: 99204

== ENCOUNTER → 2024-11-24 10:39 | Outpatient (BNVA) | payer MEDICARE, OTHER, SELFPAY | PROVIDERS: Visit Provider Physician Assistant Medical | DX: G47.33 Obstructive sleep apnea (adult) (pediatric) (principal); Z76.89 Persons encountering health services in other specified circumstances; R53.83 Other fatigue; G47.9 Sleep disorder, unspecified; E66.812 Obesity, class 2; E66.01 Morbid (severe) obesity due to excess calories; Z68.34 Body mass index [BMI] 34.0-34.9, adult | CPT/HCPCS: 99202 ==

== ENCOUNTER 2024-12-01 10:44 | Outpatient (REF) | payer MEDICARE, OTHER, SELFPAY ==
[2024-12-01 15:14] LABS: Calcium 8.8 mg/dL (8.4-10.2)
[2024-12-01 15:40] LABS: Folate 15.3 ng/mL (> or = 4.0); Vitamin B12 873 pg/mL (200-900)
[2024-12-01 15:59] LABS: Ferritin 80 ng/mL (10-250)
== END 2024-12-01 10:45 | disposition home or self-care (01) ==
LOC: HO.WFDLDS 10:44
PROVIDERS: Visit Provider Physician Assistant Medical
DX: R53.83 Other fatigue (principal); G47.9 Sleep disorder, unspecified
CPT/HCPCS: 36415; 82306; 82310; 82607; 82728; 82746; 83090; 83921

== ENCOUNTER 2025-01-29 14:52 | Outpatient (AMB) | payer MEDICARE, OTHER, SELFPAY ==
--- NOTE | 2025-01-29 14:55 | A.OFFVIS_ITS ---
Vital Signs 3 01/29/25 14:56 Height 5 ft 5 in Weight 199 lb 8.293 oz BMI 33.2 BP 124/80 Blood Pressure Location Lt brachial Position Sitting Pulse 65 Pulse Source Pulse Oximeter Pulse Oximetry (%) 99 Oxygen Delivery Method Room Air Intake Visit Reasons: Obesity Intake Note: Patient present today for obesity office visit. Family Readiness Support Assistant Required: No Accompanied by: Self / Same As Patient Allergies moxifloxacin (From Avelox) Allergy (Mild, Verified 01/29/25 14:59) rash Sulfa (Sulfonamide Antibiotics) Allergy (Mild, Verified 01/29/25 14:59) rash Medication List - Last Reconciled 01/29/25 by Di Raya MD [id number] (Evenity) subcut tirzepatide (weight loss) (Zepbound) 5 mg (0.5 mL) subcut QWEEK topiramate XR 50 mg PO DAILY HPI Comments Details: 63-year-old female here today for follow up of obesity. Obesity BMI 38.6 Current weight 231 lb Highest weight: 231 lbs since at least 4-5 years Lowest weight: 160 lbs as an adult in 30s , was skinny growing up Weight gain started: gradually started in her 30s 33 first , 1 only, kept gaining weight after Lost 60 lbs in 40s on atkins ,and then gained it back ,in her 50s lost 40 lbs with weight watchers Post menopausal since late 50s Nutrition: seeing fermentation operator in [employer], Perla Parham . 3 meals a day mostly sometimes skips lunch 7-9AM: eggs , lal , hash browns , fruit 1-2 PM: soup dinner 7 pm: protein with veggies and some carb sodas: none, only seltzer water dessert:sometimes eats at night when less protein at dinner uses my fitness pal Exercise: 6 times a week, weight training 4 days a week , pilates 2 days, each at least 30 mins No official diagnosis of HTN , but elevated BP noted today in 140s No DM2 No HLD [place] on CPAP On topiramate for migraines for 3 months no easy bruising, no proximal muscles weakness no acromegalic features no smoking alcohol: none currently Interval history 07/29/2024 Zepbound 2.5 mg weekly approved 07/29/24 BMI 37.9 kg/m2, current weight 227 lbs lost 4 lbs since May 2024 according to our scale in addition to above adding more core exercise , working with a boxing trainer Continues to use my fitness pal for maintaining a calorie deficit and aiming for 1500 calories per day Interval history 10/28/2024 Started Zepbound 2.5 mg July 2024 Increased to 5 mg weekly end of July Patient tolerating the medication valve Exercise: 6 times a week, weight training 3 times a week, Pilates 2 days, each at least 30 minutes, also working with a boxing trainer Diet: Following a diet plan with calorie deficit with the using my fitness pal Says she has started Zepbound with lifestyle modification she has lost 13% of her body weight, weight down from 231 lb in May 2024 to 207 lb today 10/28/2024 Denies GI intolerance, some diarrhea intermittently Denies low mood , depression, has a therpsist Continues follow up with the fermentation operator, has follow up this month in October 2024 Interval history 01/29/2025 Continues on Zepbound 5 mg Weight down 199 lbs from 207 lbs October 2024 Patient tolerating the medication Exercise: 6 times a week, weight training 2 times a week 1.5 hrs a week with personal training , yoga once a week , supplementing with swimming and walking Diet: Following a diet plan with calorie deficit with the using my fitness pal, focusing on a high protein low carb diet Denies GI intolerance, some diarrhea intermittently Denies low mood , depression, has a therpsist Continues follow up with the fermentation operator, has appointment 01/30/2025 Physical exam General: sitting comfortably in no acute distress HEENT: normocephalic/atraumatic, Neck: supple, symmetrical Cardiac: normal heart sounds Pulm: normal breath sounds B/L, no added breath sounds Abd: not distended, no tenderness Extremities: no edema, no signs of myxedema Laboratory Tests 06/20/24 07:55 Estimat Average Glucose 111 Hemoglobin A1c % 5.5 Triglycerides 101 Cholesterol 192 LDL Cholesterol, Calc 126 H HDL Cholesterol 46 TSH 3.49 Free T4 0.96 Thyroid Peroxidase Ab <1 PFSH Medical History Obesity Subclinical hypothyroidism Bunionette of left foot Surgical History History of bunionectomy H/O colonoscopy H/O section Family History (Updated 11/24/24 @ 11:57 by Julio Zuniga PA-C) Mother Past heart attack COPD (chronic obstructive pulmonary disease) Kidney disease Afib Father Prostate cancer Afib Sister Afib Social History Housing: House Alcohol intake: former Patient Tobacco Use Status: Former Tobacco user (quit 30 years ago) Cigarette Packs Per Day: 1 Years Smoked: 20 e-Cigarette/Vaping Use: Never Used Second Hand Smoke Exposure: Yes (past) Substance Use Type: Crack/Cocaine, Former Substance User and Marijuana service: No Current occupational status: employed and retired Cognitive needs: No Hearing needs: No Vision needs: Yes (glasses) Assessment & Plan Assessment & Plan (1) Obesity: Comment: On Zepbound 5mg po subcut wkly Code(s): E66.9 - Obesity, unspecified Category: Medical Qualifiers: Obesity type: due to excess calories Obesity classification: adult class 2 (BMI 35 - 39.9) Serious obesity comorbidity presence: with serious comorbidity Body mass index: BMI 38.0-38.9 Qualified Code(s): E66.812 - Obesity, class 2; E66.01 - Morbid (severe) obesity due to excess calories; Z68.38 - Body mass index [BMI] 38.0-38.9, adult Plan: 64-year-old female with coming in today for follow up for weight management with class 2 obesity with BMI 38.6 in May 2024 Current weight 199 lb down from 207 lb, since October 2024, lost 30 lb since May 2024 which is about 13% of her weight since she made the lifestyle modifications and started Zepbound. Currently on Zepbound 5 mg weekly which was uptitrated end of July 2024. Highest weight: 231 lbs since at least 4-5 years Lowest weight: 160 lbs as an adult in 30s , was skinny growing up Weight gain started: gradually started in her 30s She has previously tried different diets including Atkins diet and weight watchers in her 40s and 50s that did result in good results. Currently she has been trying to maintain a calorie deficit, she is following. She is following a diet plan with the help of a fermentation operator and also using my fitness pal. She has also added core exercises to this and works with a boxing trainer. Maintaining an active exercise regimen. She does not have any cushingoid or acromegalic features . We discussed continuing lifestyle modification in ensuring a 500 calorie deficit per day in order to continue to lose 1 lb per week. Her target weight should be somewhere around 130 lb though for her she would like to lose somewhere around 180 lb She does not have any history of diabetes, CVA, , labs from May 2024 showed normal A1c. LDL was however elevated at 126. We also discussed today about avoiding red meat, using olive oil or avocado oil for cooking. And avoiding trans saturated in polyunsaturated fats. She already has sleep apnea and does use a CPAP. At this point since weight loss has slowed down in somewhat plateaued, we will increase the dose. Plan: -increase Zepbound to 7.5 mg weekly injection -continue seeing the fermentation operator -continue good exercise activity as she is doing -follow up in 10 to 12 weeks Plan see above Medications: New 2 tirzepatide (weight loss) (Zepbound) 7.5 mg (0.5 mL) subcut QWEEK 2 mL 4RF E66.01 - Morbid (severe) obesity due to excess calories, E66.812 - Obesity, class 2, G47.33 - Obstructive sleep apnea (adult) (pediatric), Z68.38 - Body mass index [BMI] 38.0-38.9, adult Discontinued 2 tirzepatide (weight loss) (Zepbound) Discontinued Reason: Doctor's Order 5 mg (0.5 mL) subcut QWEEK 2 mL 5RF Coding Level of Care Code Est Pt Level 4 (60290) Diagnoses Class 2 severe obesity due to excess calories with serious comorbidity and body mass index (BMI) of 38.0 to 38.9 in adult E66.812; E66.01; Z68.38 Obesity type: due to excess calories Obesity classification: adult class 2 (BMI 35 - 39.9) Serious obesity comorbidity presence: with serious comorbidity Body mass index: BMI 38.0-38.9 Time Spent (min) 30
[2025-01-29 14:56] VITALS: BP 124/80; PULSE 65; O2SAT 99; BMI 33.2
== END 2025-01-29 15:14 | disposition home or self-care (01) ==
LOC: HO.ENCR 14:53
PROVIDERS: Visit Provider Student in an Organized Health Care Education/Training Program
DX: E66.812 Obesity, class 2 (principal); E66.01 Morbid (severe) obesity due to excess calories; Z68.38 Body mass index [BMI] 38.0-38.9, adult
CPT/HCPCS: 99214

== ENCOUNTER → 2025-01-29 14:52 | Outpatient (BNVA) | payer MEDICARE, OTHER, SELFPAY | PROVIDERS: Visit Provider Student in an Organized Health Care Education/Training Program | DX: E66.812 Obesity, class 2 (principal); Z68.38 Body mass index [BMI] 38.0-38.9, adult; Z79.899 Other long term (current) drug therapy | CPT/HCPCS: 99212 ==

== ENCOUNTER 2025-02-23 11:29 | Outpatient (AMB) | payer MEDICARE, OTHER, SELFPAY ==
[2025-02-23 11:32] VITALS: BP 122/72; PULSE 79; O2SAT 97; BMI 32.3
--- NOTE | 2025-02-23 11:32 | MHC.OFFVIS ---
Vital Signs 02/23/25 11:32 Height 5 ft 5 in Weight 194 lb 4 oz BMI 32.3 BP 122/72 Blood Pressure Location Rt brachial Position Sitting Pulse 79 Pulse Source Pulse Oximeter Pulse Oximetry (%) 97 Oxygen Delivery Method Room Air Intake Visit Reasons: 3 mo follow up Intake Note: Patient presents follow up [place]. Labs/Compliance in chart(90/90days, >=4hrs-98%, Average Usage- 6hr 30min, Med Pressure-10.4, Med Leaks-5.7, AHI-0.7). ? in-lab PSG Accompanied by: Self / Same As Patient Allergies moxifloxacin (From Avelox) Allergy (Mild, Verified 02/23/25 11:40) rash Sulfa (Sulfonamide Antibiotics) Allergy (Mild, Verified 02/23/25 11:40) rash HPI Comments Details: 64 year old female with sleep apnea is here for a f/u of sleep difficulties. [place] Compliance Report 10/2024 - 01/2025 Avg days used 90/90 and >6 hours and 30 min Total avg use daily is 6 hours and 30min Pressures 10.4 Med leaks 5.7, AHI 0.7/hr She washes her masks, rinses hoses, changes filters, and fills reservoir with water. 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 She sleeps very well with her cpap machine and is compliant. She started on Zepbound 7.5mg subq, she has lost 4 lbs since her last endocrine visit. She sees her flanging roll operator and sheet metal insulator every 4 months, for Thyroid disorder and normalized since she discontinued biotin. She grinds her teeth, has an invisalign retainer which she uses at night. She has headaches, usually 2/week, depending on stress level. If she gets one breakthrough tension headache she soaks her feet in warm water, this alleviates the pain along with taking Topiramate 25mg po at noon and 25mg po qpm. She denies RLS, has a h/o varicose veins, she wears her compression stockings every other day. She denies falls, gait or balance difficulties, though has weakness and goes for strength training and stability T/Th with a PT at her gym. [facility] Medical History Obesity Subclinical hypothyroidism Bunionette of left foot Surgical History History of bunionectomy H/O colonoscopy H/O section Family History Mother Past heart attack COPD (chronic obstructive pulmonary disease) Kidney disease Afib Father Prostate cancer Afib Sister Afib Social History Housing: House Alcohol intake: former Patient Tobacco Use Status: Former Tobacco user (quit 30 years ago) Cigarette Packs Per Day: 1 Years Smoked: 20 e-Cigarette/Vaping Use: Never Used Second Hand Smoke Exposure: Yes (past) Substance Use Type: Crack/Cocaine, Former Substance User and Marijuana service: No Current occupational status: employed and retired Cognitive needs: No Hearing needs: No Vision needs: Yes (glasses) Physical Exam Vital Signs: Last Vital Signs Pulse 79 02/23/25 11:32 BP 122/72 02/23/25 11:32 Pulse Ox 97 02/23/25 11:32 Oxygen Delivery Method Room Air 02/23/25 11:32 BMI result Body Mass Index 32.3 Const General: cooperative, comfortable and no acute distress Nutritional Appearance: average body habitus Orientation/consciousness: patient oriented x3 HEENT Face and sinus: Yes face symmetric Teeth and gingiva: other (Mallampti score of 4) Eyes Pupils: Equal, round and reactive pupils present Neck Neck: Yes full ROM Resp Effort & Inspection: normal respiratory effort and able to speak in complete sentences Neuro General: patient oriented x3 and moves all extremities Cranial nerves: Yes Facial sensation intact/muscles of mastication intact, Yes Equal, round and reactive pupils present, Yes Normal accommodation reflex present, Yes Nystagmus not present, Yes Normal facial strength present, Yes Midline tongue present and Yes Ability to bilaterally elevate shoulders present Cognition (Neuro): normal cognition Gait exam (Neuro): Normal gait present Motor exam (neuro): 5/5 motor strength present throughout and Normal motor muscle tone present throughout Psych Appearance: grossly normal Speech and movement: Normal speech and movement present Affect: normal affect Thought process: Normal thought process present Insight: Good insight present (Psych) Results Reviewed Results Reviewed: [place] Compliance Report 10/2024 - 01/2025 Avg days used 90/90 and >6 hours and 30 min Total avg use daily is 6 hours and 30min Pressures 10.4 Med leaks 5.7, AHI 0.7/hr She washes her masks, rinses hoses, changes filters, and fills reservoir with water. [facility] Note L. ankle due to fall, due to eversion with no fracture or dislocation on xray. No loc, not on anticoag.Is able to bear weight. Assessment & Plan Assessment & Plan (1) [place] (obstructive sleep apnea): Code(s): G47.33 - Obstructive sleep apnea (adult) (pediatric) Category: Medical (2) Fatigue due to sleep pattern disturbance: Code(s): R53.83 - Other fatigue; G47.9 - Sleep disorder, unspecified Category: Medical (3) Abnormality of gait due to impairment of balance: Code(s): R26.89 - Other abnormalities of gait and mobility Category: Medical Plan HST to evaluate [place] Supplies will send a request to her cpap company. Balance and gait instablity due to fall, continue PT at gym, wear good fitted shoes with orthotics and or good memory foam soles. Labs continue supplements B12/ Vit D. F/U in 3 months Orders: Orders RT home sleep study Today G47.19 - Other hypersomnia Patient Instructions: Sleep Hygiene provided: set a scheduled bedtime and wake time to help regulate the circadian rhythm and balance the release of pituitary hormones. Sleep in a dark room, temperatures below 68 degrees, and no devices n bed. Limit caffeinated products 6 hours prior to bed, and limit fluids 2-4 hours prior to bed. Gentle night yoga, diffusing essential oils, and playing soft music can be relaxing. Coding Level of Care Code Est Pt Level 4 (86408) Diagnoses [place] (obstructive sleep apnea) G47.33 Fatigue due to sleep pattern disturbance R53.83; G47.9 Abnormality of gait due to impairment of balance R26.89
== END 2025-02-23 12:14 | disposition home or self-care (01) ==
LOC: HO.HSMS 11:30
PROVIDERS: Visit Provider Physician Assistant Medical
DX: G47.33 Obstructive sleep apnea (adult) (pediatric) (principal); R53.83 Other fatigue; G47.9 Sleep disorder, unspecified; R26.89 Other abnormalities of gait and mobility
CPT/HCPCS: 99214

== ENCOUNTER → 2025-02-23 11:29 | Outpatient (BNVA) | payer MEDICARE, OTHER, SELFPAY | PROVIDERS: Visit Provider Physician Assistant Medical | DX: G47.33 Obstructive sleep apnea (adult) (pediatric) (principal); R53.83 Other fatigue; R26.89 Other abnormalities of gait and mobility; G47.19 Other hypersomnia; Z99.89 Dependence on other enabling machines and devices | CPT/HCPCS: 99212 ==

== ENCOUNTER 2025-03-20 11:52 | Outpatient (AMB) | payer MEDICARE, OTHER, SELFPAY ==
[2025-03-20 11:54] VITALS: BP 146/80; PULSE 80; TEMP 36.5; O2SAT 99; BMI 32.4
--- NOTE | 2025-03-20 11:54 | MHC.OFFWIV ---
Intake Vital Signs 03/20/25 11:54 Height 5 ft 5 in Weight 195 lb BMI 32.4 BP 146/80 H Blood Pressure Location Lt brachial Position Sitting Pulse 80 Pulse Source Pulse Oximeter Temp 97.7 F Temp Source Oral Pulse Oximetry (%) 99 Oxygen Delivery Method Room Air Intake Visit Reasons: EP-?side effect from a med, rt foot pain Intake Note: pt presents with worsening right middle toe pain and swelling [id number] Patient Tobacco Use Status: Former Tobacco user (quit 30 years ago) Allergies moxifloxacin (From Avelox) Allergy (Mild, Verified 03/20/25 12:01) rash Sulfa (Sulfonamide Antibiotics) Allergy (Mild, Verified 03/20/25 12:01) rash Do you need a note to return to daycare/school/sports/work: No HPI HPI Comments History of Present Illness Details This is a 64-year-old female with a past medical history of bunionectomy on her right foot x 2, most recent surgery in 2017 presenting for evaluation of pain in her right foot that she has had for the past 3 months. Patient denies any injury or trauma preceding the onset of her symptoms. She describes having a sharp stabbing sensation on the bottom of her right foot and the top of her right third toe. Patient states the pain is worse with activity. She has an appointment with her high school director at the end of March 2025. She has not taken any medication for treatment of this discomfort. Patient states that she has pain primarily when ambulating and she also notices when at exercise class. [facility], [facility] Medical History Obesity Subclinical hypothyroidism Bunionette of left foot Surgical History History of bunionectomy H/O colonoscopy H/O section Family History Mother Past heart attack COPD (chronic obstructive pulmonary disease) Kidney disease Afib Father Prostate cancer Afib Sister Afib Social History Housing: House Alcohol intake: former Patient Tobacco Use Status: Former Tobacco user (quit 30 years ago) Cigarette Packs Per Day: 1 Years Smoked: 20 e-Cigarette/Vaping Use: Never Used Second Hand Smoke Exposure: Yes (past) Substance Use Type: Crack/Cocaine, Former Substance User and Marijuana service: No Current occupational status: employed and retired Cognitive needs: No Hearing needs: No Vision needs: Yes (glasses) Review of Systems Const All systems reviewed & are unremarkable except as noted in HPI and below Reports no additional complaints Card Reports no additional complaints Resp Reports no additional complaints Musc Details: pain right foot plantar surface and dorsal surface of right 3rd toe Skin/Breast Reports system reviewed and no additional complaints, except as documented Neuro Reports no additional complaints Psych Reports no additional complaints Endo Reports no additional complaints Physical Exam Vital Signs: Last Vital Signs Temp 97.7 F 03/20/25 11:54 Pulse 80 03/20/25 11:54 Pulse Ox 99 03/20/25 11:54 Oxygen Delivery Method Room Air 03/20/25 11:54 BMI result Body Mass Index 32.4 Skin General skin exam: no rashes or lesions noted (right foot) and turgor normal Lesions: no lesions Rashes: no rashes Trauma: no lacerations or abrasions Wounds: no wounds Neuro Other: Sensation intact on plantar surface and dorsal surface of the right foot including all toes of the right foot. Extrem Other: Minimal pain to palpation of the proximal phalanx right 3rd toe dorsal surface and the plantar surface of the distal right 3rd metatarsal. + pes planus present, no right calf pain. Right lower extremity: full ROM, no joint enlargement and foot Details: tenderness, toes with normal ROM, no edema and tendon exam; no unusual warmth, no edema and no ecchymosis; no edema Psych Appearance: grossly normal Mental Status: mental status grossly normal Insight: Good insight present (Psych) Judgement: Good judgement present (Psych) Assessment & Plan Assessment & Plan (1) Foot tendinitis: Comment: Patient's history coupled with her examination is likely related to a right foot tendonitis. Patient has had bunionectomy x2 on this foot and comes today wearing slip-on clogs. Patient will benefit from a formal Podiatry consultation which is scheduled in March 2025. Code(s): M77.50 - Other enthesopathy of unspecified foot and ankle Plan: Patient will stretch and ice her right foot after activity; Naprosyn will be prescribed to be taken twice daily for 10 days. Patient will contact her high school director to determine if she can be seen earlier for formal Podiatry evaluation. Imaging is deferred today as there was no associated injury. Medications: New naproxen (Naprosyn) 500 mg PO BID 20 tabs 0RF Coding Level of Care Code Est Pt Level 3 (60855) Diagnoses Foot tendinitis M77.50 Time Spent (min) 25
== END 2025-03-20 12:59 | disposition home or self-care (01) ==
PROVIDERS: PCP Internal Medicine; Visit Provider Physician Assistant
DX: M77.50 Other enthesopathy of unspecified foot and ankle (principal)

== ENCOUNTER → 2025-03-20 11:52 | Outpatient (BNVA) | payer MEDICARE, OTHER, SELFPAY | PROVIDERS: PCP Internal Medicine; Visit Provider Physician Assistant | DX: M77.51 Other enthesopathy of right foot and ankle (principal) | CPT/HCPCS: 99212 ==

== ENCOUNTER 2025-03-30 10:10 | Outpatient (AMB) | payer MEDICARE, OTHER, SELFPAY ==
--- NOTE | 2025-03-30 10:16 | A.OFFPC_ITS ---
Vital Signs 03/30/25 10:21 BP 114/62 Blood Pressure Location Rt brachial Position Sitting Respiration 14 Pulse 60 Pulse Source Pulse Oximeter Pulse Oximetry (%) 97 Oxygen Delivery Method Room Air Intake Visit Reasons: follow up -1/2 h Intake Note: Follow up. Went to urgent care last week and was diagnosed with tendonitis of foot. Went to [facility] walk in and was diagnosed with Valladares neuroma. Topirate refill. Yarn Comber Required: No Allergies moxifloxacin (From Avelox) Allergy (Mild, Verified 03/31/25 15:28) rash Sulfa (Sulfonamide Antibiotics) Allergy (Mild, Verified 03/31/25 15:28) rash Tobacco use date assessed: 03/30/25 Dental Screening Dental Screen Date: 09/23/24 HPI HPI Comments History of Present Illness Details 64-year-old female with a past medical h istory of hyperlipidemia, obesity, subclinical hypothyroid, bipolar disorder, [place] on cpap, osteoporosis, pulmonary embolism, mortons neuroma presenting for follow up Neuro: On topamax for JENSEN prophylaxis. Has had MRI brain that was normal [place]-on CPAP. Obesity: Has lost 20 + pounds on zepbound. Follows with endocrinology. She has an appointment tomorrow Right foot pain: Has an upcoming appt with Dr Grady. She saw [facility] urgent care. She has an appointment scheduled with. Dr Delgado. Originally diagnosed with tendonitis now thought to be mortons neuroma. History of right LE DVT. No calf pain Colonoscopy: 01/06/2020 Mammo: UTD. Family history of breast cancer. [facility] breast & wellness Regulatory Affairs Spec: Sees Elizabeth Shipley (Dr Ray office) ROS CONSTITUTIONAL: Denies weight loss, fever and chills. HEENT: Denies changes in vision and hearing. RESPIRATORY: Denies SOB and cough. CV: Denies palpitations and CP GI: Denies abdominal pain, nausea, vomiting and diarrhea. : Denies dysuria and urinary frequency. MSK: Denies new myalgia and joint pain. SKIN: Denies rash and pruritus. NEUROLOGICAL: Denies headache PSYCHIATRIC: Denies recent changes in mood. PHYSICAL EXAM: GENERAL: Alert and oriented x 3. NAD EYES: EOMI. Anicteric. HENT: Moist mucous membranes. No scleral icterus. No cervical lymphadenopathy. LUNGS: Clear to auscultation bilaterally. CARDIOVASCULAR: Regular rate and rhythm. No murmur. No JVD. ABDOMEN: Soft, non-tender +bs EXTREMITIES: No edema. Non-tender. SKIN: No rashes or lesions. Warm. NEUROLOGIC: No focal neurological deficits. CN II-XII grossly intact PSYCHIATRIC: Cooperative. Appropriate mood and affect [facility] Medical History Obesity Bunionette of left foot Surgical History History of bunionectomy H/O colonoscopy H/O section Family History Mother Past heart attack COPD (chronic obstructive pulmonary disease) Kidney disease Afib Father Prostate cancer Afib Sister Afib Social History Housing: House Alcohol intake: former Patient Tobacco Use Status: Former Tobacco user Cigarette Packs Per Day: 1 Years Smoked: 20 e-Cigarette/Vaping Use: Never Used Second Hand Smoke Exposure: Yes (past) Substance Use Type: Crack/Cocaine, Former Substance User and Marijuana service: No Current occupational status: employed and retired Cognitive needs: No Hearing needs: No Vision needs: Yes (glasses) Questionnaire Thrive Questionnaire Date Thrive assessed: 09/16/24 I am a: Patient What is your living situation today?: I have a steady place to live Within the past 12 months, did the food you bought not last and you didn't have the money to get more?: Never true Within the past 12 months, did you worry whether your food would run out before you got money to buy more?: Never true Do you have trouble paying for medicines?: No Do you have trouble getting transportation to medical appointments?: No Do you have trouble paying your heating and electricity bill?: No Do you have trouble taking care of your child, family member or friend?: No Do you have trouble with day-to-day activities such as bathing, preparing meals, shopping, managing finances, etc.?: No Are you currently unemployed and looking for a job?: No Are you interested in more education?: No Please select the resources that you would like help with: None Currently or been in a relationship where the following occur: I choose not to answer THRIVE Score: 0 DREW-7 AMB Questionnaire DREW-7 Date DREW - 7 assessed: 09/23/24 Source: Developed by Drs. Johan Chahal, Angelina Wayne, Gordon Griffin and colleagues, with an educational dany from [employer]. Physical exam (Primary Care) Vital Signs: Last Vital Signs Pulse 60 03/30/25 10:21 Resp 14 03/30/25 10:21 BP 114/62 03/30/25 10:21 Pulse Ox 97 03/30/25 10:21 Oxygen Delivery Method Room Air 03/30/25 10:21 Tobacco/Smoking Status: Tobacco use Status Tobacco use date assessed 03/30/25 03/30/25 10:23 Patient Tobacco Use Status Former Tobacco user 03/30/25 10:23 e-Cigarette/Vaping Use Never Used 03/30/25 10:23 Thrive Assessment: Date of Thrive Assessment Date Thrive assessed 09/16/24 03/30/25 10:23 Currently or been in a relationship where the following occur: I choose not to answer Coding Level of Care Code Est Pt Level 4 (79107) Diagnoses Subclinical hypothyroidism E03.8 [place] (obstructive sleep apnea) G47.33 Class 2 severe obesity due to excess calories with serious comorbidity and body mass index (BMI) of 38.0 to 38.9 in adult E66.812; E66.01; Z68.38 Body mass index: BMI 38.0-38.9 Obesity classification: adult class 2 (BMI 35 - 39.9) Obesity type: due to excess calories Serious obesity comorbidity presence: with serious comorbidity Foot tendinitis M77.50 Assessment & Plan Assessment & Plan (1) Subclinical hypothyroidism: Code(s): E03.8 - Other specified hypothyroidism Category: Medical (2) [place] (obstructive sleep apnea): Code(s): G47.33 - Obstructive sleep apnea (adult) (pediatric) Category: Medical (3) Obesity: Code(s): E66.9 - Obesity, unspecified Category: Medical Qualifiers: Body mass index: BMI 38.0-38.9 Obesity classification: adult class 2 (BMI 35 - 39.9) Obesity type: due to excess calories Serious obesity com orbidity presence: with serious comorbidity Qualified Code(s): E66.812 - Obesity, class 2; E66.01 - Morbid (severe) obesity due to excess calories; Z68.38 - Body mass index [BMI] 38.0-38.9, adult (4) Foot tendinitis: Comment: Patient's history coupled with her examination is likely related to a right foot tendonitis. Patient has had bunionectomy x2 on this foot and comes today wearing slip-on clogs. Patient will benefit from a formal Podiatry consultation which is scheduled in March 2025. Code(s): M77.50 - Other enthesopathy of unspecified foot and ankle Category: Medical Plan 64 year old female presenting for follow up Obesity-stable on zepbound Migraines are stable on topamax Right foot pain-follow up ortho, podiatry Lab ordered Orders: Orders Complete Blood Count Auto Diff 03/30/25 E03.8 - Other specified hypothyroidism, Z13.0 - Encounter for screening for diseases of the blood and blood-forming organs and certain disorders involving the immune mechanism, Z13.228 - Encounter for screening for other metabolic disorders, Z86.711 - Personal history of pu lmonary embolism Hemoglobin A1c 03/30/25 E03.8 - Other specified hypothyroidism, E66.01 - Morbid (severe) obesity due to excess calories, E66.812 - Obesity, class 2, G47.33 - Obstructive sleep apnea (adult) (pediatric), Z68.38 - Body mass index [BMI] 38.0-38.9, adult Lipid Panel 03/30/25 E03.8 - Other specified hypothyroidism, E66.01 - Morbid ( severe) obesity due to excess calories, E66.812 - Obesity, class 2, G47.33 - Obstructive sleep apnea (adult) (pediatric), Z68.38 - Body mass index [BMI] 38.0-38.9, adult Thyroid Stimulating Hormone 03/30/25 E03.8 - Other specified hypothyroidism, E66.01 - Morbid (severe) obesity due to excess calories, E66.812 - Obesity, class 2, G47.33 - Obstructive sleep apnea (adult) (pediatric), Z68.38 - Body mass index [BMI] 38.0-38.9, adult Free T4 (Free Thyroxine) 03/30/25 E03.8 - Other specified hypothyroidism, E66.01 - Morbid (severe) obesity due to excess calories, E66.812 - Obesity, class 2, G47.33 - Obstructive sleep apnea (adult) (pediatric), Z68.38 - Body mass index [BMI] 38.0-38.9, adult Comprehensive Met. Panel 03/30/25 E03.8 - Other specified hypothyroidism, Z13.0 - Encounter for screening for diseases of the blood and blood-forming organs and certain disorders involving the immune mechanism, Z13.228 - Encounter for screening for other metabolic disorders, Z86.711 - Personal history of pulmonary embolism
[2025-03-30 10:21] VITALS: BP 114/62; PULSE 60; RESP 14; O2SAT 97
== END 2025-03-30 10:48 | disposition home or self-care (01) ==
LOC: HO.HMCFM 10:11
PROVIDERS: PCP Internal Medicine; Visit Provider Internal Medicine
DX: E03.8 Other specified hypothyroidism (principal); G47.33 Obstructive sleep apnea (adult) (pediatric); E66.812 Obesity, class 2; E66.01 Morbid (severe) obesity due to excess calories; Z68.38 Body mass index [BMI] 38.0-38.9, adult; M77.50 Other enthesopathy of unspecified foot and ankle

== ENCOUNTER 2025-03-31 15:21 | Outpatient (AMB) | payer MEDICARE, OTHER, SELFPAY ==
--- NOTE | 2025-03-31 15:26 | A.OFFVIS_ITS ---
Vital Signs 3 03/31/25 15:27 Height 5 ft 5 in Weight 192 lb 0.108 oz BMI 31.9 BP 116/68 Blood Pressure Location Rt brachial Position Sitting Pulse 60 Pulse Source Pulse Oximeter Pulse Oximetry (%) 96 Oxygen Delivery Method Room Air Intake Visit Reasons: Obesity Intake Note: Patient presents here today for a follow-up on Obesity: Patient last seen DR Di Raya MD. L Annual Campaign Manager Required: No Accompanied by: Self / Same As Patient Allergies moxifloxacin (From Avelox) Allergy (Mild, Verified 03/31/25 15:28) rash Sulfa (Sulfonamide Antibiotics) Allergy (Mild, Verified 03/31/25 15:28) rash HPI Comments Details: 63-year-old female here today for follow up of obesity. Last seen by Dr. aRya on 01/29/25. This is my first time seen the patient Obesity BMI 38.6 Current weight 231 lb Highest weight: 231 lbs since at least 4-5 years Lowest weight: 160 lbs as an adult in 30s , was skinny growing up Weight gain started: gradually started in her 30s 33 first , 1 only, kept gaining weight after Lost 60 lbs in 40s on atkins ,and then gained it back ,in her 50s lost 40 lbs with weight watchers Post menopausal since late 50s Nutrition: seeing mine production engineer in [employer], Perla Parham . 3 meals a day mostly sometimes skips lunch 7-9AM: eggs , lal , hash browns , fruit 1-2 PM: soup dinner 7 pm: protein with veggies and some carb sodas: none, only seltzer water dessert:sometimes eats at night when less protein at dinner uses my fitness pal Exercise: 6 times a week, weight training 4 days a week , pilates 2 days, each at least 30 mins No official diagnosis of HTN , but elevated BP noted today in 140s No DM2 No HLD [place] on CPAP On topiramate for migraines for 3 months no easy bruising, no proximal muscles weakness no acromegalic features no smoking alcohol: none currently Interval history 07/29/2024 Zepbound 2.5 mg weekly approved 07/29/24 BMI 37.9 kg/m2, current weight 227 lbs lost 4 lbs since May 2024 according to our scale in addition to above adding more core exercise , working with a personal care aide Continues to use my fitness pal for maintaining a calorie deficit and aiming for 1500 calories per day Interval history 10/28/2024 Started Zepbound 2.5 mg July 2024 Increased to 5 mg weekly end of July Patient tolerating the medication valve Exercise: 6 times a week, weight training 3 times a week, Pilates 2 days, each at least 30 minutes, also working with a personal care aide Diet: Following a diet plan with calorie deficit with the using my fitness pal Says she has started Zepbound with lifestyle modification she has lost 13% of her body weight, weight down from 231 lb in May 2024 to 207 lb today 10/28/2024 Denies GI intolerance, some diarrhea intermittently Denies low mood , depression, has a therpsist Continues follow up with the mine production engineer, has follow up this month in October 2024 Interval history 01/29/2025 Continues on Zepbound 5 mg Weight down 199 lbs from 207 lbs October 2024 Patient tolerating the medication Exercise: 6 times a week, weight training 2 times a week 1.5 hrs a week with personal training , yoga once a week , supplementing with swimming and walking Diet: Following a diet plan with calorie deficit with the using my [employer] pal, focusing on a high protein low carb diet Denies GI intolerance, some diarrhea intermittently Denies low mood , depression, has a therpsist Continues follow up with the mine production engineer, has appointment 01/30/2025 Interval history 03/31/25 She is currently in Zepbound 7.5mg, she feels like her weight have plateaued She has not being exercising as much in terms of intensity She is 7 lbs down from last visit on 01/29/25 She reports her hair is falling out and her nails are brittle No nausea or vomiting, no abdominal pain. She is seen a dietitian which is helping with the diet Physical exam General: Well appearing. NAD. Neck/Thyroid: Thyroid not palpable, no nodules. CV: RRR, no murmur. No edema. Resp:Lungs clear to auscultation bilaterally Abdomen: Soft, nontender. nondistended Extremities/Neuro: No weakness or tremor of outstretched hands Laboratory Tests 06/20/24 07:55 Estimat Average Glucose 111 Hemoglobin A1c % 5.5 Triglycerides 101 Cholesterol 192 LDL Cholesterol, Calc 126 H HDL Cholesterol 46 TSH 3.49 Free T4 0.96 Thyroid Peroxidase Ab <1 PFSH Medical History Obesity Bunionette of left foot Surgical History History of bunionectomy H/O colonoscopy H/O section Family History Mother Past heart attack COPD (chronic obstructive pulmonary disease) Kidney disease Afib Father Prostate cancer Afib Sister Afib Social History Housing: House Alcohol intake: former Patient Tobacco Use Status: Former Tobacco user Cigarette Packs Per Day: 1 Years Smoked: 20 e-Cigarette/Vaping Use: Never Used Second Hand Smoke Exposure: Yes (past) Substance Use Type: Crack/Cocaine, Former Substance User and Marijuana service: No Current occupational status: employed and retired Cognitive needs: No Hearing needs: No Vision needs: Yes (glasses) Physical Exam Vital Signs: Last Vital Signs Pulse 60 03/31/25 15:27 BP 116/68 03/31/25 15:27 Pulse Ox 96 03/31/25 15:27 Oxygen Delivery Method Room Air 03/31/25 15:27 BMI result Body Mass Index 31.9 Assessment & Plan Assessment & Plan (1) Obesity: Comment: On Zepbound 7.5mg po subcut wkly Code(s): E66.9 - Obesity, unspecified Category: Medical Qualifiers: Body mass index: BMI 38.0-38.9 Obesity classification: adult class 2 (BMI 35 - 39.9) Obesity type: due to excess calories Serious obesity comorbidity presence: with serious comorbidity Qualified Code(s): E66.812 - Obesity, class 2; E66.01 - Morbid (severe) obesity due to excess calories; Z68.38 - Body mass index [BMI] 38.0-38.9, adult Plan: 64-year-old female with coming in today for follow up for weight management with class 2 obesity with BMI 38.6 in May 2024 Current weight 199 lb down from 207 lb, since October 2024, lost 30 lb since May 2024 which is about 13% of her weight since she made the lifestyle modifications and started Zepbound. Currently on Zepbound 5 mg weekly which was uptitrated end of July 2024. Highest weight: 231 lbs since at least 4-5 years Lowest weight: 160 lbs as an adult in 30s , was skinny growing up Weight gain started: gradually started in her 30s She has previously tried different diets including Atkins diet and weight watchers in her 40s and 50s that did result in good results. Currently she has been trying to maintain a calorie deficit, she is following. She is following a diet plan with the help of a mine production engineer and also using my fitness pal. She has also added core exercises to this and works with a personal care aide. Maintaining an active exercise regimen. She does not have any cushingoid or acromegalic features . We discussed continuing lifestyle modification in ensuring a 500 calorie deficit per day in order to continue to lose 1 lb per week. Her target weight should be somewhere around 130 lb though for her she would like to lose somewhere around 180 lb She does not have any history of diabetes, CVA, , labs from May 2024 showed normal A1c. LDL was however elevated at 126. We also discussed today about avoiding red meat, using olive oil or avocado oil for cooking. And avoiding trans saturated in polyunsaturated fats. She already has sleep apnea and does use a CPAP. She is losing a reasonable, possibly lower end of expected, amount of weight. I think it is reasonable to continue the dose for now. We discussed that losing weight too fast might cause some macro and micronutrients deficits. Plan: -Continue Zepbound to 7.5 mg weekly injection -advised the patient to monitor weight and appetite, if needed for increased appetite or decreased weight loss, we could increase the dose -continue seeing the mine production engineer -continue good exercise activity as she is doing -follow up in 3 months Plan Spent 30 mins spent reviewing previous records, labs, imaging, education and documenting in the chart Coding Level of Care Code Est Pt Level 4 (54744) Diagnoses Class 2 severe obesity due to excess calories with serious comorbidity and body mass index (BMI) of 38.0 to 38.9 in adult E66.812; E66.01; Z68.38 Body mass index: BMI 38.0-38.9 Obesity classification: adult class 2 (BMI 35 - 39.9) Obesity type: due to excess calories Serious obesity comorbidity presence: with serious comorbidity
[2025-03-31 15:27] VITALS: BP 116/68; PULSE 60; O2SAT 96; BMI 31.9
== END 2025-03-31 15:58 | disposition home or self-care (01) ==
LOC: HO.ENCR 15:22
PROVIDERS: PCP Internal Medicine; Visit Provider Student in an Organized Health Care Education/Training Program
DX: E66.812 Obesity, class 2 (principal); E66.01 Morbid (severe) obesity due to excess calories; Z68.38 Body mass index [BMI] 38.0-38.9, adult
CPT/HCPCS: 99214

== ENCOUNTER → 2025-03-31 15:21 | Outpatient (BNVA) | payer MEDICARE, OTHER, SELFPAY | PROVIDERS: PCP Internal Medicine; Visit Provider Student in an Organized Health Care Education/Training Program | DX: E66.812 Obesity, class 2 (principal); E66.01 Morbid (severe) obesity due to excess calories; Z68.38 Body mass index [BMI] 38.0-38.9, adult | CPT/HCPCS: 99212 ==

== ENCOUNTER 2025-04-03 08:20 | Outpatient (REF) | payer MEDICARE, OTHER, SELFPAY ==
[2025-04-03 11:33] LABS: MANUAL DIFF FLAG NO
[2025-04-03 11:49] LABS: Hematocrit 41.2 % (37.0-47.0); Hemoglobin 13.5 g/dl (12.0-16.0); Imm Gran Abs Auto 0.01 X10*3/uL (0.00-0.03); Imm Gran Pct Auto 0.2 % (0.0-0.4); Lymphocytes Absolute Auto 2.1 X10*3/uL (1.2-4.9); Mean Corpuscular HGB Conc 32.8 g/dl (31.0-35.0); Mean Corpuscular Hemoglobin 30.7 pg (27.0-33.0); Mean Corpuscular Volume 93.6 fL (80.0-98.0); NRBC Abs Auto 0.000 X10*3/uL (0.0-0.012); NRBC Pct Auto 0.0 /100WBC (0.0-0.2); Platelet Count 252 X10*3/uL (160-400); Red Blood Count 4.40 X10*6/uL (4.20-5.50); White Blood Count 5.4 X10*3/uL (4.8-10.8)
[2025-04-03 12:22] LABS: Alanine Aminotransferase 24 U/L (0-31); Albumin Level 4.5 g/dL (3.5-5.0); Alkaline Phosphatase 64 U/L (39-117); Anion Gap 11 (12-20); Aspartate Amino Transferase 28 U/L (5-31); Blood Urea Nitrogen 17 mg/dL (9-16); Calcium 9.1 mg/dL (8.4-10.2); Carbon Dioxide 27 mmol/L (22-29); Chloride 109 mmol/L (96-108); Cholesterol 172 mg/dL (<200); Estimated Glomerular Filt Rate 59; Free T4 (Free Thyroxine) 1.07 ng/dL (0.71-1.85); HDL Cholesterol 50 mg/dL (>40); Potassium 4.0 mmol/L (3.3-5.1); Sodium 143 mmol/L (135-145); Thyroid Stimulating Hormone 3.15 uIU/mL (0.32-4.0); Total Protein 7.0 g/dL (6.5-8.0); Triglycerides 63 mg/dL (<150)
== END 2025-04-03 08:21 | disposition home or self-care (01) ==
LOC: HO.WFDLDS 08:20
PROVIDERS: Visit Provider Internal Medicine
DX: Z13.0 Encounter for screening for diseases of the blood and blood-forming organs and certain disorders involving the immune mechanism (principal); Z13.228 Encounter for screening for other metabolic disorders; Z13.1 Encounter for screening for diabetes mellitus; E03.8 Other specified hypothyroidism; G47.33 Obstructive sleep apnea (adult) (pediatric); E66.812 Obesity, class 2; Z68.38 Body mass index [BMI] 38.0-38.9, adult; Z86.711 Personal history of pulmonary embolism
CPT/HCPCS: 36415; 80053; 80061; 83036; 84439; 84443; 85025

== ENCOUNTER → 2025-05-12 10:03 | Outpatient (REF) | payer MEDICARE, OTHER, SELFPAY ==
--- OUTSIDE RECORDS SUMMARY | 2025-05-12 12:23 | XMS_ITS | Patient Health Record ---
Demographics Address [address] [place] [address] [phone] Mobile Email Address Preferred Language en Marital Status Christianity Affiliation Unknown Race White Ethnic Group Not or Lati no Author Organization [facility] Address [address] [place] [address] Support Name Relationship Address Phone ANDRY KILGORE Emergency Contact [address] [place], [place] [id number] MELL KILGORE Guarantor Unknown [phone] Care Team Providers Care Press Maintainer Name Role Phone TREE Brown Primary Care Provider TREE SMITH D.O. Unavailable Unavailable Allergies Allergen (clinical drug ingredient) Drug/Non Drug Allergy documented on EMR Reaction Allergy Type Onset Date Status moxifloxacin Moxifloxacin myalgias,skin blotches 07/09 Drug Allergy Active Substance with sulfonamide structure and antibacterial mechanism of action (substance) Sulfa Antibiotics rash Drug Allergy Active Reason For Referral No Information Medications Medication SIG (Take, Route, Frequency, Duration) Notes Start Date End Date Status Advil 200 MG Tablet 3 tab(s) orally tid PRN 09/26/2017 Active NASAL SALINE 2 SPRAYS EACH NOSTRIL EVERY 2 HOURS NEEDED *Please review for potential replacement for e-prescription and drug interaction check* 06/30/2009 Active Fluticasone Propionate 50 MCG/ACT Suspension 1 spray intranasally once a day as needed Active Medical Compression Stockings 15-20MMHG MED PUT ON IN AM AND TAKE OFF Q HS DAILY DX: I 87.2 NAME ONLY Conversion from Multum Review and pick correct strength-formulati on from EnviroMissionan options. If intended option is not shown, discontinue and re-order from Quick Search. 05/01/2018 Active Multivitamin 1 TAB ONCE DAILY NAME ONLY Conversion from Multum Review and pick correct strength-formulati on from EnviroMissionan options. If intended option is not shown, discontinue and re-order from Quick Search. Active Immunizations Vaccine Route Administration Date Status Comme nts FLU- FLUVIRIN, PRE-FILLED SYRINGE 0.5 ml ID Intradermal 07/18/2013 Administered Influenza, Fluzone QUAD, 3+ yrs, IM Intramuscular 05/01/2018 Administered Influenza, Fluzone Quad.5 ml, IM Intramuscular 07/16/2016 Administered Pneumococcal Prevnar 13 IM Intramuscular 07/15/2016 Admini stered Tdap (Adacel)11-64,State Supplied Unknown 10/13/2011 Administered Social History Tobacco Use: Social History Observation Description Date Details (start date - stop date) Former Smoker NA - 05/28/1991 Social History Tobacco Use: Social Info Question Answer Notes Smoking Are you a: former smoker When did you stop Smoking ? 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 walks her dog Coffee/Tea/Soda: yes 1-2 cups of cof fee daily, Decaf tea occassionally, no soda Marital Status experience no Living with Pets 1 dog smokers in household no Problems Problem Type SNOMED Code ICD Code Onset Dates Problem Status W/U Status Risk Notes Problem Hypothyroidism (33900277) Hypothyroidism (acquired) (244.9) Active confirmed Problem Joint pain (47867244) Joint pain , other specified sites NEC (719.48) Active confirmed Problem Subacromial bursitis (97475555) Subacromial bursitis (726.19) Active confirmed Problem Talipes (595498753) Pes (754.70) Active confirm ed Problem Dyspareunia (55450487) Dyspareunia (625.0) Active confirmed Problem Rosacea (499349313) Rosacea (695.3) Active conf irmed Problem Peripheral venous insufficiency (17843003) VENOUS INSUFFICIENCY NOS (459.81) Active confirmed Problem Dermatitis (203181911) DERMATITIS NOS (692.9) Active confirmed Problem Generalized anxiety disorder (60387396) Generalized anxiety disorder (F41.1) Active confirmed Problem Acquired hypothyroidism (837355017) Acquired hypothyroidism (E03.9) Active confirmed Problem Allergic rhinitis (25075104) Other allergic rhinitis (J30.89) Active confirmed Problem Obese class II (634178003419772) BMI 35.0-35.9,adult (Z68.35) Active confirmed Problem Obese class II (896864936975599) BMI 36.0-36.9,adult (Z68.36) Active confirmed Problem Cyst of left breast (29006585706035962) Cyst of left breast (N60.02) Active confirmed Problem Tendinitis of left rotator cuff (09485354076360968) Tendonitis of left rotator cuff (M75.82) Active confirmed Problem Saddle embolus of pulmonary artery (disorder) (497818258483785) Acute saddle pulmonary embolism without acute cor pulmonale (I26.92) Active confirmed Problem Peripheral venous insufficiency (50894423) Venous insufficiency of both lower extremities (I87.2) Active confirmed Problem History of pulmonary embolism on long-term anticoagulation therapy (14219135209962562) Hx pulmonary embolism (Z86.711) Active confirmed Problem Pure hypercholesterolemia (945634704) Pure hypercholesterolemia (E78.00) Active confirmed Problem Postprocedural state s (840474473) History of bunionectomy of right great toe (Z98.890) Active confirmed Plan Of Treatment Pending Test Test Name Order Date Exercise Stress Test: Andrei Protocol Future Test Test Name Order Date LIPID PROFILE 06/18/2020 GLYCOHEMOGLOBIN (HBA1C) 06/18/2020 CBC W/ AUTOMATED DIFF 06/18/2020 COMP. METABOLIC 06/18/2020 TSH WITH REFLEX TO FT4 06/18/2020 TSH WITH REFLEX TO FT4 09/27/2020 Insurance Providers Payer Name Payer Address Payer Phone Subscriber Number Group Number Insured Name Patient Relationship to Insured Coverage Start Date Coverage End Date [facility] [address] [place], [place] [id number] MELL REGALADO Self - patient is the insured 0 Medical (General) History Medical History History ICD Code contraceptive heavy vaginal bleeding 5/0 3 nuva ring borderline gestational diabetes 1992 Bipolar age [age]; Past [employer] IUD-2005 Rosacea Colon 12/22/0816hg-Ledo-Cth [id number] allergic rhinitis Echocardiogram 11/17/09-normal LV, trace TR, no IHSS Nevoid or segmental vascular patch left upper arm-benign per Dr Hercules 03/2012 Hepatitis C antibody negative 06/2014 Subacute hypothyroidism dx ; TSH 2.62 in 06/2015; 3.30 in 01/11; 6.23 in 01/12 B/L breast cysts-mammogram, LT breast US 04/12; Repeat LT breast US in 6 months. (BAG ADJUSTER-Dr Kayla Pittman)-> 2018 Dr Frank in [place], [place] Saddle pulmonary embolism 2 weeks following RT bunionectomy-Tx with TPA, IV heparin until 07/14/16, then Lovenox, then Xarelto starting 07/16/16; Xarelto stopped 01/17/17 HEALTH CARE PROXY IN [facility] RT 06/2011-ANDRY KILGORE AND BALA VELOZPATIENT REPORTS SHE HAS AN UPDATED HCP AT 01/18/18 CPX AND WILL BRING A COPY TO THE OFFICE Colonoscopy 01/06/2084-zebmtk-Ou Weinstein. Next colon due 01/24 Follows with a therapist, Cassie sanchez- past 5 years Surgical History Surgery Date(Month/Year) Endovenous Laser Ablation Tr eatment of LT Greater saphenous vein of proximal thigh into anterior accessory great saphenous vein of the mid thigh to distal thigh and calf-Dr Carson 01/20/20 Closimg abductory wedge oste otomy RT 1st metatarsal-DR Johan Jackson 06/28/16 RT breast lumpectomy (benign) - Dr Kelvin castro 03/2012 rt bunionectomy 1990 wisdom teeth Hospitalization History Reason Date(Month/Year) see surgeries [facility]-Saddle pulmonary em bolism 2 weeks after RT bunionectomy; echocardiogram-LV 60-65%, normal wall motion, mild diastolic dysfunction 07/13-
== END ==
LOC: HO.SL 10:03
PROVIDERS: Visit Provider Physician Assistant Medical
DX: G47.19 Other hypersomnia (principal)
CPT/HCPCS: 95806

== ENCOUNTER → 2025-05-13 10:15 | Outpatient (BNV) | payer MEDICARE, OTHER, SELFPAY | PROVIDERS: Visit Provider Psychiatry & Neurology Neurology | DX: G47.33 Obstructive sleep apnea (adult) (pediatric) (principal) | CPT/HCPCS: 95806 ==

== ENCOUNTER 2025-05-25 09:37 | Outpatient (AMB) | payer MEDICARE, OTHER, SELFPAY ==
[2025-05-25 09:39] VITALS: BP 122/74; PULSE 60; O2SAT 98; BMI 32.0
--- NOTE | 2025-05-25 09:39 | MHC.OFFVIS ---
Vital Signs 05/25/25 09:39 Height 5 ft 5 in Weight 192 lb 6 oz BMI 32.0 BP 122/74 Blood Pressure Location Rt brachial Position Sitting Pulse 60 Pulse Source Pulse Oximeter Pulse Oximetry (%) 98 Oxygen Delivery Method Room Air Intake Visit Reasons: 3mnth fu Intake Note: Patient presents follow up [place]. HST done 05/13. Compliance in chart(/90days, >=4hrs-94%, Average Usage-6hr 42min, Med Pressure-10.4, Med Leaks-8.5, AHI-0.8) Director Product Development Required: No Accompanied by: Self / Same As Patient Allergies moxifloxacin (From Avelox) Allergy (Mild, Verified 05/25/25 09:39) rash Sulfa (Sulfonamide Antibiotics) Allergy (Mild, Verified 05/25/25 09:39) rash HPI Comments Details: 64 year old female with mild sleep apnea is here for a f/u of sleep difficulties. [place] Compliance Report reviewed with pt 01/2025 - 04/2025 Avg days used and avg use is 6 hours and 42min Press are 10.4, leaks 8.5/min and AHI is 0.7/hr She washes her masks, rinses hoses, changes filters, and fills reservoir with water. The leaks are bothersome, wakes her up though she feels refreshed in the mornings. 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 She sleeps very well with her cpap machine and is compliant. She started on Zepbound 7.5mg subq, she has lost 4 lbs since her last endocrine visit. She sees her psychologist personnel and regional loss prevention manager every 4 months for Thyroid disorder, it has normalized since she discontinued biotin. She grinds her teeth, wears an invisalign retainer at night time. She has headaches, usually 2/week, depending on her stress level. If she gets one breakthrough tension headache she soaks her feet in warm water, this alleviates the pain along with taking Topiramate 25mg po at noon and 25mg po qpm. She denies RLS, has a h/o varicose veins, she wears her compression stockings and walks every other day. She denies falls, gait or balance difficulties, though has weakness and goes for strength training and stability T/Th with a PT at her gym. [facility] Medical History Obesity Bunionette of left foot Surgical History History of bunionectomy H/O colonoscopy H/O section Family History Mother Past heart attack COPD (chronic obstructive pulmonary disease) Kidney disease Afib Father Prostate cancer Afib Sister Afib Social History Housing: House Alcohol intake: former Patient Tobacco Use Status: Former Tobacco user Cigarette Packs Per Day: 1 Years Smoked: 20 e-Cigarette/Vaping Use: Never Used Second Hand Smoke Exposure: Yes (past) Substance Use Type: Crack/Cocaine, Former Substance User and Marijuana service: No Current occupational status: employed and retired Cognitive needs: No Hearing needs: No Vision needs: Yes (glasses) Physical Exam Vital Signs: Last Vital Signs Pulse 60 05/25/25 09:39 BP 122/74 05/25/25 09:39 Pulse Ox 98 05/25/25 09:39 Oxygen Delivery Method Room Air 05/25/25 09:39 BMI result Body Mass Index 32.0 Const General: cooperative, comfortable and no acute distress Nutritional Appearance: average body habitus Orientation/consciousness: patient oriented x3 HEENT Face and sinus: Yes face symmetric Teeth and gingiva: other ([place]pti score of 4) Eyes Pupils: Equal, round and reactive pupils present Neck Neck: Yes full ROM Resp Effort & Inspection: normal respiratory effort and able to speak in complete sentences Neuro Other: gait is off leans to the side General: patient oriented x3 and moves all extremities Cranial nerves: Yes Facial sensation intact/muscles of mastication intact, Yes Equal, round and reactive pupils present, Yes Normal accommodation reflex present, Yes Nystagmus not present, Yes Normal facial strength present, Yes Midline tongue present and Yes Ability to bilaterally elevate shoulders present Cognition (Neuro): normal cognition Gait exam (Neuro): Other gait observations present Motor exam (neuro): 5/5 motor strength present throughout and Normal motor muscle tone present throughout Coordination: [id number] test normal Psych Appearance: grossly normal Speech and movement: Normal speech and movement present Affect: normal affect Thought process: Normal thought process present Insight: Good insight present (Psych) Results Reviewed Results Reviewed: [place] Compliance Report reviewed with pt 01/2025 - 04/2025 Avg days used and avg use is 6 hours and 42min Press are 10.4, leaks 8.5/min and AHI is 0.7/hr She washes her masks, rinses hoses, changes filters, and fills reservoir with water. Assessment & Plan Assessment & Plan (1) [place] (obstructive sleep apnea): Code(s): G47.33 - Obstructive sleep apnea (adult) (pediatric) Category: Medical (2) Fatigue due to sleep pattern disturbance: Code(s): R53.83 - Other fatigue; G47.9 - Sleep disorder, unspecified Category: Medical (3) Abnormality of gait due to impairment of balance: Code(s): R26.89 - Other abnormalities of gait and mobility Category: Medical Plan [place] on cpap and she is compliant, pt feels refreshed with use of cpap and is mindful of using it >4hours daily. Supplies will send a request to her cpap company. Airfit P30i nasal pillows. Balance and gait instability due to fall, continue with Physical Therapy at gym, wear good fitted shoes with orthotics and or good memory foam soles. Labs reviewed with pt continue supplements B12 1000mcg qpm and Vit D 1000units daily at bedtime. . F/U in 3 months Patient Instructions: Please complete the following fasting labs to rule out deficiencies. CBC/CMP/ B12/ Vit D/ TSH/ Homocysteine and MMA/ Ferritin. Sleep Hygiene provided: set a scheduled bedtime and wake time to help regulate the circadian rhythm and balance the release of pituitary hormones. Sleep in a dark room, temperatures below 68 degrees, and no devices n bed. Limit caffeinated products 6 hours prior to bed, and limit fluids 2-4 hours prior to bed. Gentle night yoga, diffusing essential oils, and playing soft music can be relaxing. Coding Level of Care Code Est Pt Level 4 (30363) Diagnoses [place] (obstructive sleep apnea) G47.33 Fatigue due to sleep pattern disturbance R53.83; G47.9 Abnormality of gait due to impairment of balance R26.89
--- OUTSIDE RECORDS SUMMARY | 2025-05-25 10:14 | XMS_ITS | Patient Health Record ---
Demographics Address [address] [place] [address] [phone] Mobile Email Address Preferred Language en Marital Status Gnosticist Affiliation Unknown Race White Ethnic Group Not or Lati no Author Organization [facility] Address [address] [place] [address] Support Name Relationship Address Phone ANDRY KILGORE Emergency Contact 05[address] [place], [place] [id number] MELL KILGORE Guarantor Unknown [phone] Care Team Providers Care Building Manager Name Role Phone TREE Brown Primary Care [...] Review and pick correct strength-formulati on from Victrioan options. If intended option is not shown, discontinue and re-order from Quick Search. 05/01/2018 Active Multivitamin 1 TAB ONCE DAILY NAME ONLY Conversion from Multum Review and pick correct strength-formulati on from Victrioan options. 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0) Active confirmed Problem Rosacea (875411106) Rosacea (695.3) Active conf irmed Problem Peripheral venous insufficiency (15120141) VENOUS INSUFFICIENCY NOS (459.81) Active confirmed Problem Dermatitis (498840753) DERMATITIS NOS (692.9) Active confirmed Problem Generalized anxiety disorder (50285193) Generalized anxiety disorder (F41.1) Active confirmed Problem Acquired hypothyroidism (977257409) Acquired hypothyroidism (E03.9) Active confirmed Problem Allergic rhinitis (85068738) Other allergic rhinitis (J30.89) Active confirmed Problem Obese class II (639705948601587) BMI 35.0-35.9,adult (Z68.35) Active confirmed Problem Obese class II (539370655728676) BMI 36.0-36.9,adult (Z68.36) Active confirmed Problem Cyst of left breast (64893340707994167) Cyst of left breast (N60.02) Active confirmed Problem Tendinitis of left rotator cuff (31588437192348191) Tendonitis of left rotator cuff (M75.82) Active confirmed Problem Saddle embolus of pulmonary artery (disorder) (866360844549015) Acute saddle pulmonary embolism without acute cor pulmonale (I26.92) Active confirmed Problem Peripheral venous insufficiency (57117941) Venous insufficiency of both lower extremities (I87.2) Active confirmed Problem History of pulmonary embolism on long-term anticoagulation therapy (56850922394790556) Hx pulmonary embolism (Z86.711) Active confirmed Problem Pure hypercholesterolemia (241368669) Pure hypercholesterolemia (E78.00) Active confirmed Problem Postprocedural state s (149689094) History of bunionectomy of right great toe [...] Insured Coverage Start Date Coverage End Date [facility] [address] [place], [place] [id number] MELL REGALADO Self - patient is the insured 0 Medical (General) History Medical History History ICD Code contraceptive heavy vaginal bleeding 5/0 3 nuva ring borderline gestational diabetes 1992 Bipolar age [age]; Past [employer] IUD-2005 Rosacea Colon 12/22/0802hl-Pwco-Wsr [id number] allergic rhinitis Echocardiogram 11/17/09-normal LV, trace TR, no IHSS Nevoid or segmental vascular patch left upper arm-benign per Dr Hercules 03/2012 Hepatitis C antibody negative 06/2014 Subacute hypothyroidism dx ; TSH 2.62 in 06/2015; 3.30 in 01/11; 6.23 in 01/12 B/L breast cysts-mammogram, LT breast US 04/12; Repeat LT breast US in 6 months. (SALES CONTRACT ADMINISTRATOR-Dr Kayla Pittman)-> 2018 Dr Frank in [place], [place] Saddle pulmonary embolism 2 weeks following RT bunionectomy-Tx with TPA, IV heparin until 07/14/16, then Lovenox, then Xarelto starting 07/16/16; Xarelto stopped 01/17/17 HEALTH CARE PROXY IN [facility] RT 06/2011-ANDRY KILGORE AND BALA VELOZPATIENT REPORTS SHE HAS AN UPDATED HCP AT 01/18/18 CPX AND WILL BRING A COPY TO THE OFFICE Colonoscopy 01/06/2014-mfmifh-Gm Weinstein. Next colon due 01/24 Follows with [...] teeth Hospitalization History Reason Date(Month/Year) see surgeries [facility]-[place] pulmonary em bolism 2 weeks after RT bunionectomy; echocardiogram-LV 60-65%, normal wall motion, mild diastolic dysfunction 07/13-
== END 2025-05-25 10:23 | disposition home or self-care (01) ==
LOC: HO.HSMS 09:38
PROVIDERS: PCP Internal Medicine; Visit Provider Physician Assistant Medical
DX: G47.33 Obstructive sleep apnea (adult) (pediatric) (principal); R53.83 Other fatigue; G47.9 Sleep disorder, unspecified; R26.89 Other abnormalities of gait and mobility
CPT/HCPCS: 99214

== ENCOUNTER → 2025-05-25 09:37 | Outpatient (BNVA) | payer MEDICARE, OTHER, SELFPAY | PROVIDERS: PCP Internal Medicine; Visit Provider Physician Assistant Medical | DX: G47.33 Obstructive sleep apnea (adult) (pediatric) (principal); G47.9 Sleep disorder, unspecified; R53.83 Other fatigue; R26.89 Other abnormalities of gait and mobility | CPT/HCPCS: 99212 ==